=== PATIENT | male | born 1970 | race Caucasian/White ===

== ENCOUNTER 2017-12-16 18:35 | Emergency (ER) | payer SELFPAY ==
--- NOTE | 2017-12-16 19:18 | ER ---
Nurse's Notes [facility] Name: Won Vera Age: 47 yrs Sex: Male : 1970 Arrival Date: 12/16/2017 Time: 18:36 Bed 30 Private MD: Diagnosis: Unspecified open wound, right lower leg-chronic wound Presentation: 12/16 18:48 Presenting complaint: Patient states: Chronic wound to right lower leg. Pt reports hb increased pain and foul smelling drainage over last 3 days. Transition of care: patient was not received from another setting of care. Onset of symptoms is unknown. Risk Assessment: Do you want to hurt yourself or someone else? Patient reports no desire to harm self or others. Initial Sepsis Screen: Does the patient meet any 2 criteria? No. Patient's initial sepsis screen is negative. Does the patient have a suspected source of infection? No. Patient's initial sepsis screen is negative. Care prior to arrival: None. 18:48 Method Of Arrival: Ambulatory hb 18:48 Acuity: DELANEY 3 hb Historical: - Allergies: 18:50 No Known Allergies; hb - PMHx: 18:50 RLS; Anemia; hb - PSHx: 18:50 None; hb - Immunization history:: Adult Immunizations up to date. - Social history:: Smoking status: Patient uses tobacco products, smokes one pack cigarettes per day. - Ebola Screening: : No symptoms or risks identified at this time. Screenin:29 Abuse screen: Denies threats or abuse. Denies injuries from another. Nutritional rv screening: No deficits noted. Tuberculosis screening: No symptoms or risk factors identified. Fall Risk None identified. Assessment: 19:28 General: Appears in no apparent distress. comfortable, Behavior is calm, cooperative. rv Pain: Complains of pain in right foreman. Neuro: Level of Consciousness is awake, alert, obeys commands, Oriented to person, place, time, situation. Cardiovascular: Heart tones S1 S2 present. Respiratory: Airway is patent. GI: No signs and/or symptoms were reported involving the gastrointestinal system. : No signs and/or symptoms were reported regarding the genitourinary system. EENT: No signs and/or symptoms were reported regarding the EENT system. Derm: Wound noted right foreman. Vital Signs: 18:49 BP 153 / 98; Pulse 71; Resp 18; Temp 98.7; Pulse Ox 100% on R/A; Weight 81.65 kg; hb Height 6 ft. (182.88 cm); Pain 9/10; 18:49 Body Mass Index 24.41 (81.65 kg, 182.88 cm) hb ED Course: 18:36 Patient arrived in ED. as 18:49 Triage completed. hb 18:50 Arm band placed on right wrist. hb 19:02 [facility] pm1 19:02 Titi Hua MD is Attending Physician. pm1 19:16 Fam Booker MD is Referral Physician. pm1 19:29 Patient has correct armband on for positive identification. Bed in low position. Call rv light in reach. Side rails up X 1. Adult w/ patient. Pulse ox on. NIBP on. 19:29 No provider procedures requiring assistance completed. Patient did not have IV access rv during this emergency room visit. Administered Medications: No medications were administered Outcome: 19:17 Discharge ordered by MD. pm1 19:29 Discharged to home ambulatory. rv 19:29 Condition: good 19:29 Discharge instructions given to patient, Instructed on discharge instructions, follow up and referral plans. wound care. 19:33 Patient left the ED. rv Signatures: Latosha Booker as Bayron Carvajal NP SQL SSRS DEVELOPER pm1 Estrellita Trinidad, NGA RN Ever Seay RN RN rv
--- NOTE | 2017-12-16 19:18 | EDPHYS ---
Physician Documentation [facility] Name: Won Vera Age: 47 yrs Sex: Male : 1970 Arrival Date: 12/16/2017 Time: 18:36 Bed 30 Private MD: ED Physician Titi Hua HPI: 12/16 19:16 This 47 yrs old Male presents to ER via Ambulatory with complaints of Wound pm1 Infection. 19:16 Patient presents to ED for recheck of: Chronic wound. The affected area is on the pm1 medial aspect of right calf. Previous treatment: 2 years ago at the wound center. Progress: The patient reports no change in. The patient has experienced similar episodes in the past, chronically. The patient has not recently seen a physician. Patient with chronic wound to left lower leg for 5 years. Patient has not had evaluation of his wound for the past 2 years. Patient without fever. Reports some drainage and odor from the wound. Historical: - Allergies: 18:50 No Known Allergies; hb - PMHx: 18:50 RLS; Anemia; hb - PSHx: 18:50 None; hb - Immunization history:: Adult Immunizations up to date. - Social history:: Smoking status: Patient uses tobacco products, smokes one pack cigarettes per day. - Ebola Screening: : No symptoms or risks identified at this time. ROS: 19:16 Constitutional: Negative for fever, chills, and weight loss, Eyes: Negative for injury, pm1 pain, redness, and discharge, ENT: Negative for injury, pain, and discharge, Neck: Negative for injury, pain, and swelling, Cardiovascular: Negative for chest pain, palpitations, and edema, Respiratory: Negative for shortness of breath, cough, wheezing, and pleuritic chest pain, Abdomen/GI: Negative for abdominal pain, nausea, vomiting, diarrhea, and constipation, Back: Negative for injury and pain, : Negative for injury, bleeding, discharge, and swelling, MS/Extremity: Negative for injury and deformity. 19:16 Skin: Positive for Chronic wound. Exam: 19:16 Constitutional: This is a well developed, well nourished patient who is awake, alert, pm1 and in no acute distress. Head/Face: Normocephalic, atraumatic. Neck: Trachea midline, no thyromegaly or masses palpated, and no cervical lymphadenopathy. Supple, full range of motion without nuchal rigidity, or vertebral point tenderness. No Meningismus. Chest/axilla: Normal chest wall appearance and motion. Nontender with no deformity. No lesions are appreciated. Cardiovascular: Regular rate and rhythm with a normal S1 and S2. No gallops, murmurs, or rubs. Normal PMI, no JVD. No pulse deficits. Respiratory: Lungs have equal breath sounds bilaterally, clear to auscultation and percussion. No rales, rhonchi or wheezes noted. No increased work of breathing, no retractions or nasal flaring. Back: No spinal tenderness. No costovertebral tenderness. Full range of motion. 19:16 Skin: Appearance: normal except for affected area, Wound recheck: 10 cm x 5 cm chronic wound without any discharge present. No odor present. No cellulitis present surrounding chronic wound. Vital Signs: 18:49 BP 153 / 98; Pulse 71; Resp 18; Temp 98.7; Pulse Ox 100% on R/A; Weight 81.65 kg; hb Height 6 ft. (182.88 cm); Pain 9/10; 18:49 Body Mass Index 24.41 (81.65 kg, 182.88 cm) hb MDM: 19:13 Patient medically screened. pm1 19:16 Data reviewed: vital signs. Data interpreted: Pulse oximetry: on room air is 100 %. pm1 Interpretation: normal. Counseling: I had a detailed discussion with the patient and/or guardian regarding: the historical points, exam findings, and any diagnostic results supporting the discharge/admit diagnosis, the need for outpatient follow up, for definitive care, wound care, to return to the emergency department if symptoms worsen or persist or if there are any questions or concerns that arise at home. 19:16 ED course: Recommended follow up with general surgeon and/or wound center for pm1 definitive care and treatment. Administered Medications: No medications were administered Disposition: 12/17 09:40 Co-signature as Attending Physician, Titi Hua MD I agree with the assessment and keaton plan of care. Disposition: 12/16/17 19:17 Discharged to Home. Impression: Unspecified open wound, right lower leg - chronic wound. - Condition is Stable. - Discharge Instructions: Wound Care. - Prescriptions for Tramadol 50 mg Oral Tablet - take 1 tablet by ORAL route every 8 hours as needed; 12 tablet. Bactrim DS 800- 160 mg Oral Tablet - take 1 tablet by ORAL route every 12 hours for 10 days; 20 tablet. Doxycycline Hyclate 100 mg Oral Tablet - take 1 tablet by ORAL route every 12 hours; 20 tablet. - Medication Reconciliation Form, Thank You Letter, Antibiotic Education, Prescription Opioid Use form. - Follow up: Fam Booker MD; When: 2 - 3 days; Reason: Recheck today's complaints, Continuance of care, Re-evaluation by your physician. - Problem is new. - Symptoms have improved. Signatures: Titi Hua MD MD cha Marinas, Patrick, NP BRAKE HOLDER pm1 Estrellita Trinidad, RN RN Ever Seay RN RN rv Corrections: (The following items were deleted from the chart) 12/16 19:26 19:17 12/16/2017 19:17 Discharged to Home. Impression: Chronic wound. Condition is pm1 Stable. Forms are Medication Reconciliation Form, Thank You Letter, Antibiotic Education, Prescription Opioid Use. Follow up: Fam Booker; When: 2 - 3 days; Reason: Recheck today's complaints, Continuance of care, Re-evaluation by your physician. Problem is new. Symptoms have improved. pm1 19:33 19:26 12/16/2017 19:17 Discharged to Home. Impression: Unspecified open wound, right rv lower leg - chronic wound. Condition is Stable. Discharge Instructions: Wound Care. Prescriptions for Tramadol 50 mg Oral Tablet - take 1 tablet by ORAL route every 8 hours as needed; 12 tablet, Bactrim DS 800-160 mg Oral Tablet - take 1 tablet by ORAL route every 12 hours for 10 days; 20 tablet. and Forms are Medication Reconciliation Form, Thank You Letter, Antibiotic Education, Prescription Opioid Use. Follow up: Fam Booker; When: 2 - 3 days; Reason: Recheck today's complaints, Continuance of care, Re-evaluation by your physician. Problem is new. Symptoms have improved. pm1
[2017-12-16] MEDS ORDERED: HYDROCODONE/APAP 7.5/325 MG TAB ONE (19:29)
[2017-12-16 20:20] VITALS: BP 153/98; TEMP 98.7; O2SAT 100
== END 2017-12-16 19:33 | disposition home or self-care (01) ==
LOC: ER 18:35
DX: S81.801A Unspecified open wound, right lower leg, initial encounter (principal); F17.210 Nicotine dependence, cigarettes, uncomplicated; X58.XXXA Exposure to other specified factors, initial encounter; Y93.9 Activity, unspecified; Y92.9 Unspecified place or not applicable; Y99.9 Unspecified external cause status
CPT/HCPCS: 99283

== ENCOUNTER 2018-08-12 17:34 | Emergency (ER) | payer SELFPAY ==
--- NOTE | 2018-08-12 18:28 | RAD REPORT ---
EXAM DESCRIPTION: USExtronaldo Venous Uni Ltd3 6:18 pm CLINICAL HISTORY: Right leg pain and swelling. COMPARISON: 2016 FINDINGS: Right common femoral, superficial femoral, popliteal and right posterior tibial veins are compressible and demonstrate augmentation. Doppler demonstrates good flow. IMPRESSION: No evidence of deep venous thrombosis involving the right lower extremity.
--- NOTE | 2018-08-12 19:11 | EDPHYS ---
Physician Documentation [facility] Name: Won Vera Age: 48 yrs Sex: Male : 1970 Arrival Date: 08/12/2018 Time: 17:37 Bed 11 Private MD: None, None ED Physician Sigrid Burgos HPI: 08/12 18:05 This 48 yrs old Male presents to ER via Ambulatory with complaints of Leg cp Pain. 18:05 The patient presents with pain, chronic wound. cp 18:05 The complaints affect the medial aspect of right calf. cp 18:05 Patient reports chronic ulcer wound on right lower leg for years that he has been cp managing on own. Patient reports he has been unable to be evaluated at wound care clinic due to lack of PCP and insurance. 18:05 Associated signs and symptoms: Pertinent negatives fever, swelling. cp Historical: - Allergies: 17:40 No Known Drug Allergies; sv - PMHx: 17:40 Anemia; RLS; sv - PSHx: 17:40 None; sv - Immunization history:: Adult Immunizations unknown. - Social history:: Smoking status: Patient/guardian denies using tobacco. - Ebola Screening: : Patient negative for fever greater than or equal to 101.5 degrees Fahrenheit, and additional compatible Ebola Virus Disease symptoms Patient denies exposure to infectious person Patient denies travel to an Ebola-affected area in the 21 days before illness onset No symptoms or risks identified at this time. ROS: 18:10 MS/extremity: Positive for pain, of the right lower leg. cp 18:10 Constitutional: Negative for body aches, chills, fever, poor PO intake. cp 18:10 Respiratory: Negative for cough, shortness of breath, wheezing. 18:10 Abdomen/GI: Negative for abdominal pain, nausea, vomiting, and diarrhea. 18:10 Skin: Positive for ulceration, of the medial aspect right lower leg. 18:10 All other systems are negative. Exam: 18:20 Constitutional: The patient appears in no acute distress, alert, awake, non-toxic, well cp developed, well nourished. 18:20 Head/Face: Normocephalic, atraumatic. cp 18:20 Eyes: Periorbital structures: appear normal, Conjunctiva: normal, no exudate, no injection, Lids and lashes: appear normal, bilaterally. 18:20 ENT: External ear(s): are unremarkable, Nose: is normal, Mouth: Lips: moist, Oral mucosa: moist, Posterior pharynx: Airway: no evidence of obstruction, patent. 18:20 Chest/axilla: Inspection: normal. 18:20 Cardiovascular: Rate: normal. 18:20 Respiratory: the patient does not display signs of respiratory distress, Respirations: normal. 18:20 Abdomen/GI: Exam negative for discomfort, distension, guarding. 18:20 Musculoskeletal/extremity: DVT Exam: pain, that is mild, of the right leg, tenderness, that is mild, of the right leg, increased warmth, that is mild, of the right leg. 18:20 Skin: large skin ulcer medial aspect right lower leg above ankle with mild surrounding erythema. Vital Signs: 17:40 BP 138 / 82; Pulse 77; Resp 16; Temp 98; Pulse Ox 100% ; Weight 81.65 kg; Height 6 ft. sv 0 in. (182.88 cm); Pain 7/10; 19:32 BP 136 / 78; Pulse 74; Resp 16; Temp 98.1; Pulse Ox 99% on R/A; Pain 6/10; ls4 17:40 Body Mass Index 24.41 (81.65 kg, 182.88 cm) sv MDM: 17:45 Patient medically screened. cp 18:30 Differential diagnosis: DVT, cellulitis, abscess. cp 19:10 Data reviewed: vital signs, nurses notes, radiologic studies, ultrasound. cp 19:10 Counseling: I had a detailed discussion with the patient and/or guardian regarding: the cp historical points, exam findings, and any diagnostic results supporting the discharge/admit diagnosis, radiology results, the need for outpatient follow up, for definitive care, a general surgeon, to return to the emergency department if symptoms worsen or persist or if there are any questions or concerns that arise at home. 08/12 17:56 Order name: US Extremity Venous Unilateral Ltd; Complete Time: 18:35 cp 08/12 18:35 Interpretation: Report reviewed. cp Administered Medications: No medications were administered Disposition: 20:00 Chart complete. cp 20:41 Co-signature as Attending Physician, Sigrid Burgos MD. ma2 Disposition: 08/12/18 19:11 Discharged to Home. 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 - Condition is Stable. - Discharge Instructions: Cellulitis, Adult, Venous Ulcer. - Prescriptions for Tramadol 50 mg Oral Tablet - take 1 tablet by ORAL route every 8 hours as needed; 15 tablet. Keflex 500 mg Oral Capsule - take 1 capsule by ORAL route every 8 hours for 10 days; 30 capsule. Bactrim DS 800- 160 mg Oral Tablet - take 1 tablet by ORAL route every 12 hours for 10 days; 20 tablet. - Medication Reconciliation Form, Thank You Letter, Antibiotic Education, Prescription Opioid Use, Work release form form. - Follow up: Johnathan Barrera MD; When: 48 Hours; Reason: Wound Recheck. - Problem is an ongoing problem. - Symptoms have improved. Signatures: Dispatcher [employer] Radha Ahmadi RN RN sv Titi Villarreal PA PA cp Sigrid Burgos MD MD ma2 Angelita Wilson RN RN ls4 Corrections: (The following items were deleted from the chart) 19:07 18:05 The complaints affect the medial aspect distal left lower leg, cp cp 19:12 19:11 08/12/2018 19:11 Discharged to Home. Impression: Varicose veins of right lower cp extremity with both ulcer and inflammation. Condition is Stable. Forms are Medication Reconciliation Form, Thank You Letter, Antibiotic Education, Prescription Opioid Use. Follow up: Johnathan Barrera; When: 48 Hours; Reason: Wound Recheck. Problem is an ongoing problem. Symptoms have improved. cp 19:33 19:12 08/12/2018 19:11 Discharged to Home. Impression: Varicose veins of right lower ls4 extremity with both ulcer and inflammation; Cellulitis of right lower limb. Condition is Stable. Discharge Instructions: Venous Ulcer, Cellulitis, Adult. Prescriptions for Tramadol 50 mg Oral Tablet - take 1 tablet by ORAL route every 8 hours as needed; 15 tablet, Keflex 500 mg Oral Capsule - take 1 capsule by ORAL route every 8 hours for 10 days; 30 capsule, Bactrim DS 800-160 mg Oral Tablet - take 1 tablet by ORAL route every 12 hours for 10 days; 20 tablet. and Forms are Medication Reconciliation Form, Thank You Letter, Antibiotic Education, Prescription Opioid Use. Follow up: Johnathan Barrera; When: 48 Hours; Reason: Wound Recheck. Problem is an ongoing problem. Symptoms have improved. cp
--- NOTE | 2018-08-12 19:11 | ER ---
Nurse's Notes [facility] Name: Won Vera Age: 48 yrs Sex: Male : 1970 Arrival Date: 08/12/2018 Time: 17:37 Bed 11 Private MD: None, None Diagnosis: Varicose veins of right lower extremity with both ulcer and inflammation;Cellulitis of right lower limb Presentation: 08/12 17:39 Presenting complaint: Patient states: RLE pain, "I have a visceral vein and it keeps sv getting worse." Has had it for 6 years. Transition of care: patient was not received from another setting of care. Onset of symptoms is unknown. Care prior to arrival: None. 17:39 Method Of Arrival: Ambulatory sv 17:39 Acuity: DELANEY 4 sv 17:43 Risk Assessment: Do you want to hurt yourself or someone else? Patient reports no ls4 desire to harm self or others. Initial Sepsis Screen: Does the patient meet any 2 criteria? No. Patient's initial sepsis screen is negative. Does the patient have a suspected source of infection? No. Patient's initial sepsis screen is negative. Triage Assessment: 17:51 General: Appears in no apparent distress. Behavior is cooperative. ls4 Historical: - Allergies: 17:40 No Known Drug Allergies; sv - PMHx: 17:40 Anemia; RLS; sv - PSHx: 17:40 None; sv - Immunization history:: Adult Immunizations unknown. - Social history:: Smoking status: Patient/guardian denies using tobacco. - Ebola Screening: : Patient negative for fever greater than or equal to 101.5 degrees Fahrenheit, and additional compatible Ebola Virus Disease symptoms Patient denies exposure to infectious person Patient denies travel to an Ebola-affected area in the 21 days before illness onset No symptoms or risks identified at this time. Screenin:42 Abuse screen: Denies threats or abuse. Denies injuries from another. Nutritional ls4 screening: No deficits noted. Tuberculosis screening: No symptoms or risk factors identified. Fall Risk None identified. Assessment: 16:00 Pain: Complains of pain in medial aspect of right calf Pain currently is 6 out of 10 on ls4 a pain scale. Cardiovascular: No deficits noted. Respiratory: No deficits noted. GI: No deficits noted. 16:00 Derm: Wound noted medial aspect of right calf Wound is clean open venous wound. pink. ls4 Vital Signs: 17:40 BP 138 / 82; Pulse 77; Resp 16; Temp 98; Pulse Ox 100% ; Weight 81.65 kg; Height 6 ft. sv 0 in. (182.88 cm); Pain 7/10; 19:32 BP 136 / 78; Pulse 74; Resp 16; Temp 98.1; Pulse Ox 99% on R/A; Pain 6/10; ls4 17:40 Body Mass Index 24.41 (81.65 kg, 182.88 cm) sv ED Course: 17:37 Patient arrived in ED. mr 17:37 None, None is Private Physician. mr 17:39 Triage completed. sv 17:41 Angelita Wilson, RN is Primary Nurse. ls4 17:41 Arm band placed on. sv 17:42 Patient has correct armband on for positive identification. ls4 17:42 No provider procedures requiring assistance completed. ls4 17:45 Titi Villarreal PA is PHCP. cp 17:45 Sigrid Burgos MD is Attending Physician. cp 18:17 Ultrasound completed. Patient tolerated well. Patient moved back from ultrasound. cy 18:17 US Extremity Venous Unilateral Ltd In Process Unspecified. EDMS 19:09 Johnathan Barrera MD is Referral Physician. cp 19:31 Patient did not have IV access during this emergency room visit. ls4 Administered Medications: No medications were administered Outcome: 19:11 Discharge ordered by MD. cp 19:30 Discharged to home ambulatory. ls4 19:30 Condition: good 19:30 Discharge instructions given to patient, Instructed on discharge instructions, follow up and referral plans. medication usage, wound care, Demonstrated understanding of instructions, follow-up care, medications, wound care, Prescriptions given X 3. 19:33 Patient left the ED. ls4 Signatures: Dispatcher [employer] EDRadha Escalona RN RN Indira Piña mr Titi Villarreal PA PA cp Yong, Chheannith cy Stewart, Lisa, NGA RN ls4
[2018-08-12 19:42] VITALS: BP 136/78; TEMP 98.1; O2SAT 99
== END 2018-08-12 19:33 | disposition home or self-care (01) ==
LOC: ER 17:34
DX: L03.115 Cellulitis of right lower limb (principal); I83.218 Varicose veins of right lower extremity with both ulcer of other part of lower extremity and inflammation; L97.819 Non-pressure chronic ulcer of other part of right lower leg with unspecified severity
CPT/HCPCS: 93971; 99284

== ENCOUNTER 2018-12-22 19:50 | Inpatient (IN) | payer SELFPAY ==
[2018-12-22 21:19] LABS: Absolute Lymphocytes (CBC) 1.1 K/uL (0.7-4.9); Basophils % 0.6 % (0-1.3); Lymphocytes % 9.2 % (15.3-44.8); MPV 8.7 fL (7.6-11.3); RBC Red Blood Cell Count 2.79 M/uL (4.33-5.43)
[2018-12-22 21:33] LABS: Hematocrit 16.6 % (39.6-49.0); Protime INR 1.05
[2018-12-22] MEDS ORDERED: FENTANYL CITR 100 MCG/2 ML ONE (21:49)
[2018-12-22 21:51] LABS: Urine Bacteria <20 /HPF (NONE SEEN); Urine Culture Reflex Order NOT NEEDED
--- NOTE | 2018-12-22 21:55 | RAD REPORT ---
EXAM DESCRIPTION: RAD - Tib Fib Right - 12/22/2018 9:08 pm CLINICAL HISTORY: chronic wound COMPARISON: Tibia Fibula Right dated 01/23/2015 FINDINGS: Prominent wound is seen along the medial aspect of the distal leg. Underlying osteomyeliti s is not evident by plain radiograph. No radiopaque foreign body seen. Moderate soft tissue swelling about the ankle.
--- NOTE | 2018-12-22 22:12 | RAD REPORT ---
EXAM DESCRIPTION: US - Extremity Venous Uni Ltd - 12/22/2018 10:05 pm CLINICAL HISTORY: PAIN Leg swelling and edema. COMPARISON: <Comparisons> FINDINGS: Right lower extremity venous system was interrogated with Doppler technique. Normal flow, compressibility and augmentation was noted. There is no DVT present. IMPRESSION: No evidence of right lower extremity deep venous thrombosis.
[2018-12-22 22:25] LABS: ALT/SGPT 14 U/L (12-78); AST/SGOT 14 U/L (15-37); Albumin 3.5 g/dL (3.4-5.0); Alkaline Phosphatase 64 U/L (45-117); BUN Blood Urea Nitrogen 21 mg/dL (7-18); Bicarbonate 20 mmol/L (21-32); Bilirubin Direct < 0.1 mg/dL (0-0.2); Bilirubin Total 0.2 mg/dL (0.2-1.0); Glucose Level 88 mg/dL (74-106); Potassium 3.8 mmol/L (3.5-5.1); Protein, Total 7.1 g/dL (6.4-8.2); Sodium Level 144 mmol/L (136-145)
[2018-12-22 22:33] LABS: Anisocytosis 3+; Blood Morphology Comment NOTED (NOT SEEN); Hypochromasia 3+; Ovalocytes 3+; Platelet Estimate ADEQ; Teardrop Cell 1+; Urine White Blood Cell Casts OK
[2018-12-22 22:35] LABS: C-Reactive Protein 6.11 mg/L (<3.00)
[2018-12-22 22:44] LABS: Urine Blood 1+ (NEG); Urine Glucose NEGATIVE (NEG); Urine Protein TRACE (NEG)
--- NOTE | 2018-12-22 23:02 | EDPHYS ---
Physician Documentation [facility] Name: Won Vera Age: 48 yrs Sex: Male : 1970 Arrival Date: 12/22/2018 Time: 19:53 Bed 23 Private MD: ED Physician Antony Pabon HPI: 12/22 20:35 This 48 yrs old Male presents to ER via Ambulatory with complaints of Leg cp Pain, Wound Infection. 20:35 The patient presents with chronic wound. The complaints affect the medial aspect of cp right calf. Context: resulted from spider bite 6 years ago, the patient can fully bear weight, the patient is able to ambulate, with mild difficulty. 20:35 Associated signs and symptoms: Pertinent positives: warmth, drainage from wound, cp Pertinent negatives fever, vomiting. Historical: - Allergies: 21:19 No Known Allergies; rr5 - Home Meds: 21:19 None [Active]; rr5 - PMHx: 21:19 Anemia; RLS; Asthma; rr5 - PSHx: 21:19 wound debridement; rr5 - Immunization history:: Adult Immunizations up to date. - Social history:: Smoking status: Patient uses tobacco products, 1/4 ppD, Patient/guardian denies using alcohol, street drugs. - Ebola Screening: : Patient negative for fever greater than or equal to 101.5 degrees Fahrenheit, and additional compatible Ebola Virus Disease symptoms Patient denies exposure to infectious person Patient denies travel to an Ebola-affected area in the 21 days before illness onset. ROS: 20:45 Constitutional: Negative for body aches, chills, fever, poor PO intake. cp 20:45 Eyes: Negative for injury, pain, redness, and discharge. cp 20:45 ENT: Negative for drainage from ear(s), ear pain, sore throat, difficulty swallowing, cp difficulty handling secretions. 20:45 Cardiovascular: Negative for chest pain, palpitations. 20:45 Respiratory: Positive for shortness of breath, on exertion. Negative for cough, wheezing. 20:45 Abdomen/GI: Negative for abdominal pain, nausea, vomiting, and diarrhea, constipation, anorexia, black/tarry stool, rectal bleeding. 20:45 : Negative for urinary symptoms. 20:45 Skin: Positive for swelling, of the medial aspect of right calf. 20:45 Neuro: Positive for dizziness, weakness, Negative for altered mental status, headache, loss of consciousness, syncope. 20:45 All other systems are negative. Exam: 20:55 Constitutional: The patient appears in no acute distress, alert, awake, cp non-diaphoretic, non-toxic, well developed, well nourished, uncomfortable. 20:55 Head/Face: Normocephalic, atraumatic. cp 20:55 Eyes: Pupils equal round and reactive to light, extra-ocular motions intact. Lids and cp lashes normal. Conjunctiva and sclera are non-icteric and not injected. Cornea within normal limits. Periorbital areas with no swelling, redness, or edema. 20:55 ENT: External ear(s): are unremarkable, Nose: is normal, Mouth: Lips: moist, Oral mucosa: pink and intact, moist, Posterior pharynx: is normal, airway is patent, no erythema, no exudate. 20:55 Neck: ROM/movement: is normal, is supple, without pain, no range of motions limitations, no nuchal rigidity. 20:55 Chest/axilla: Inspection: normal, Palpation: is normal, no crepitus, no tenderness. 20:55 Cardiovascular: Rate: normal, Rhythm: regular, Heart sounds: murmur, not appreciated, JVD: is not appreciated. 20:55 Respiratory: the patient does not display signs of respiratory distress, Respirations: normal, no use of accessory muscles, no retractions, no splinting, no tachypnea, labored breathing, is not present, Breath sounds: are clear throughout, no decreased breath sounds, no stridor, no wheezing. 20:55 Abdomen/GI: Inspection: abdomen appears normal, Palpation: abdomen is soft and cp non-tender, in all quadrants, Rectal exam: Stool: brown, guaiac negative. 20:55 Back: pain, is absent, ROM is normal. 20:55 Skin: large ulcerated wound medial aspect right lower leg with surrounding erythema and drainage. 20:55 Neuro: Orientation: to person, place \T\ time. Mentation: is normal, Cerebellar function: is grossly normal, Motor: moves all fours, strength is normal, Sensation: no obvious gross deficits. 12/23 01:09 ECG was reviewed by the Attending Physician. cp Vital Signs: 12/22 20:50 BP 146 / 63; Pulse 80; Resp 19; Temp 98.3; Pulse Ox 99% ; Weight 79.38 kg; Height 6 ft. rr5 0 in. (182.88 cm); Pain 9/10; 23:55 BP 123 / 70; Pulse 65; Resp 16; Temp 97.8; Pulse Ox 100% ; rr5 12/23 00:05 BP 116 / 67; Pulse 66; Resp 17; Temp 97.8; Pulse Ox 99% ; rr5 12/22 20:50 Body Mass Index 23.73 (79.38 kg, 182.88 cm) rr5 12/22 23:55 baseline VS for Blood transfusion. rr5 12/23 00:05 please see trasnfusion record form for the succeeding VS rr5 MDM: 12/22 20:01 Patient medically screened. cp 21:00 Differential diagnosis: sepsis, osteomyelitis, cellulitis, DVT. cp 22:45 Data reviewed: vital signs, nurses notes, lab test result(s), radiologic studies, plain cp films, ultrasound, and as a result, I will admit patient. 22:45 Test interpretation: by ED physician or midlevel provider: plain radiologic studies. cp Counseling: I had a detailed discussion with the patient and/or guardian regarding: the historical points, exam findings, and any diagnostic results supporting the discharge/admit diagnosis, lab results, radiology results, the need for further work-up and treatment in the hospital. 23:00 Physician consultation: Sigrid Carcamo MD was called at 22:50, was contacted at 22:50, cp regarding admission, to the telemetry unit. patient's condition. 23:00 Response to treatment: the patient's symptoms have markedly improved after treatment. 12/22 20:30 Order name: Wound Culture: right lower leg 12/22 20:30 Order name: C-Reactive Protein; Complete Time: 22:37 12/22 22:38 Interpretation: Abnormal: C-REACTIVE PROT 6.11. 12/22 20:30 Order name: Sed Rate; Complete Time: 22:37 cp 12/22 22:38 Interpretation: Abnormal: SED 58. cp 12/22 20:30 Order name: Basic Metabolic Panel; Complete Time: 22:37 12/22 20:30 Order name: Blood Culture Adult (2) cp 12/22 20:30 Order name: CBC with Diff; Complete Time: 22:37 cp 12/22 22:38 Interpretation: Reviewed. 12/22 20:30 Order name: Lactate; Complete Time: 22:23 cp 12/22 20:30 Order name: LFT's; Complete Time: 22:37 cp 12/22 20:30 Order name: Procalcitonin; Complete Time: 22:23 cp 12/22 20:30 Order name: Protime (+inr); Complete Time: 21:36 cp 12/22 20:30 Order name: Ptt, Activated; Complete Time: 21:36 cp 12/22 20:30 Order name: Urine Microscopic Only; Complete Time: 22:23 cp 12/22 21:19 Order name: Glucose, Ancillary Testing; Complete Time: 21:36 EDMS 12/22 21:35 Order name: Urine Dipstick--Ancillary (enter results) 2 12/22 20:30 Order name: XRAY Tib Fib RIGHT; Complete Time: 22:23 cp 12/22 21:31 Order name: US Extremity Venous Unilateral Ltd; Complete Time: 22:23 cp 12/22 21:37 Order name: CBC Smear Scan; Complete Time: 22:37 EDMS 12/22 21:37 Order name: Type And Screen 12/22 23:16 Order name: Packed RBC Leukored EDMS 12/23 00:44 Order name: Folic Acid, (Folate) EDMS 12/23 00:44 Order name: Vitamin B12 Level EDMS 12/23 00:44 Order name: Ferritin EDMS 12/23 00:44 Order name: Lactic Dehydrogenase EDMS 12/23 00:44 Order name: Retic Count EDMS 12/23 00:45 Order name: Protein Electo w/M Anish Serum EDMS 12/23 00:45 Order name: Transferrin Sat/Iron Binding EDMS 12/23 00:45 Order name: Basic Metabolic Panel EDMS 12/23 00:45 Order name: Basic Metabolic Panel EDMS 12/23 00:45 Order name: CBC with Automated Diff EDMS 12/23 00:45 Order name: CBC with Automated Diff EDMS 12/22 20:30 Order name: Accucheck; Complete Time: 21:12 cp 12/22 20:30 Order name: Cardiac monitoring; Complete Time: 21:12 cp 12/22 20:30 Order name: IV Saline Lock - Large Bore; Complete Time: 21:12 cp 12/22 20:30 Order name: Labs collected and sent; Complete Time: 21:12 cp 12/22 20:30 Order name: O2 Per Protocol; Complete Time: 21:12 cp 12/22 20:30 Order name: O2 Sat Monitoring; Complete Time: 21:12 cp 12/22 20:30 Order name: Urine Dipstick-Ancillary (obtain specimen); Complete Time: 21:30 12/22 21:37 Order name: IV; Complete Time: 21:39 cp 12/22 22:43 Order name: US LE Artery Uni Ltd 12/23 00:44 Order name: CONS Pharmacy Consult EDSC 12/23 00:44 Order name: CONS Pharmacy Consult EDSC 12/23 00:44 Order name: Heart Healthy EDSC 12/23 01:02 Order name: EKG; Complete Time: 01:05 cp 12/23 01:02 Order name: EKG - Nurse/Tech; Complete Time: 01:14 cp EC/30 01:09 Rate is 68 beats/min. Rhythm is regular. OR interval is normal. QRS interval is normal. cp QT interval is normal. Interpreted by me. Reviewed by me. Administered Medications: 12/22 21:37 Drug: fentaNYL (PF) 25 mcg Route: IVP; Site: right antecubital; rr5 22:40 Follow up: Response: No adverse reaction rr5 23:35 Drug: Zosyn 3.375 grams Route: IVPB; Infused Over: 60 mins; Site: right antecubital; ea 12/23 00:30 Follow up: Response: No adverse reaction; IV Status: Completed infusion; IV Intake: rr5 100ml 12/22 23:35 Drug: morphine 4 mg Route: IVP; Site: right antecubital; ea 12/23 00:41 Follow up: Response: No adverse reaction rr5 00:31 Drug: vancoMYCIN 1 grams Route: IVPB; Infused Over: 2 hrs; Site: right antecubital; rr5 01:49 Follow up: Response: No adverse reaction; IV Status: Completed infusion; IV Intake: rr5 250ml 00:31 Drug: vancoMYCIN 500 mg Route: IVPB; Infused Over: 1 hrs; Site: right antecubital; rr5 01:05 Follow up: IV Status: Infusion continued upon admission rr5 Point of Care Testing: Blood Glucose: 12/22 21:18 Blood Glucose: 92 mg/dL; jp3 Ranges: Critical Glucose Levels:Adult <50 mg/dl or >400 mg/dl <40 mg/dl or >180 mg/dl Disposition: 12/23 04:08 Co-signature as Attending Physician, Antony Pabon MD I agree with the assessment and tw4 plan of care. Disposition: 12/22/18 23:01 Hospitalization ordered by Sigrid Carcamo for Inpatient Admission. Preliminary diagnosis are Anemia in chronic diseases classified elsewhere, Cellulitis of right lower limb. - Bed requested for Telemetry/MedSurg (Inpatient). - Status is Inpatient Admission. rr5 - Condition is Stable. - Problem is new. - Symptoms have improved. UTI on Admission? No Signatures: Dispatcher [employer] EDMS Titi Villarreal PA PA cp Garcia, Cindy, RN RN Bushra Patel RN Antony Rosa ea, MD MD tw4 Jeovanny Garcia RN RN rr5 Corrections: (The following items were deleted from the chart) 00:47 12/22 23:01 Hospitalization Ordered by Sigrid Carcamo MD for Inpatient Admission. cg Preliminary diagnosis is Anemia in chronic diseases classified elsewhere; Cellulitis of right lower limb. Bed requested for Telemetry/MedSurg (Inpatient). Status is Inpatient Admission. Condition is Stable. Problem is new. Symptoms have improved. UTI on Admission? No. cp 12/23 00:59 00:59 Constitutional: Negative for cp cp 01:50 00:47 12/22/2018 23:01 Hospitalization Ordered by Sigrid Carcamo MD for Inpatient rr5 Admission. Preliminary diagnosis is Anemia in chronic diseases classified elsewhere; Cellulitis of right lower limb. Bed requested for Telemetry/MedSurg (Inpatient). Status is Inpatient Admission. Condition is Stable. Problem is new. Symptoms have improved. UTI on Admission? No. cg
--- NOTE | 2018-12-22 23:02 | ER ---
Nurse's Notes [facility] Name: Won Vera Age: 48 yrs Sex: Male : 1970 Arrival Date: 12/22/2018 Time: 19:53 Bed 23 Private MD: Diagnosis: Anemia in chronic diseases classified elsewhere;Cellulitis of right lower limb Presentation: 12/22 20:50 Presenting complaint: Patient states: pain on my right leg. it was bitten by spider 6 rr5 years ago and it turned out became visceral ulcer. pain score 9/10. 20:50 Transition of care: patient was not received from another setting of care. Onset of rr5 symptoms was December 22, 2018. Risk Assessment: Do you want to hurt yourself or someone else? Patient reports no desire to harm self or others. Initial Sepsis Screen: Does the patient meet any 2 criteria? No. Patient's initial sepsis screen is negative. Does the patient have a suspected source of infection? Yes: Skin breakdown/wound. Care prior to arrival: None. 20:50 Method Of Arrival: Ambulatory rr5 20:50 Acuity: DELANEY 3 rr5 Historical: - Allergies: 21:19 No Known Allergies; rr5 - Home Meds: 21:19 None [Active]; rr5 - PMHx: 21:19 Anemia; RLS; Asthma; rr5 - PSHx: 21:19 wound debridement; rr5 - Immunization history:: Adult Immunizations up to date. - Social history:: Smoking status: Patient uses tobacco products, 1/4 ppD, Patient/guardian denies using alcohol, street drugs. - Ebola Screening: : Patient negative for fever greater than or equal to 101.5 degrees Fahrenheit, and additional compatible Ebola Virus Disease symptoms Patient denies exposure to infectious person Patient denies travel to an Ebola-affected area in the 21 days before illness onset. Screenin:11 Abuse screen: Denies threats or abuse. Denies injuries from another. Nutritional rr5 screening: No deficits noted. Tuberculosis screening: No symptoms or risk factors identified. Fall Risk IV access (20 points). Total Cui Fall Scale indicates No Risk (0-24 pts). Assessment: 20:50 General: Appears in no apparent distress. uncomfortable, Behavior is calm, cooperative, rr5 appropriate for age. 20:50 Pain: Complains of pain in right lower leg Pain does not radiate. Pain currently is 9 rr5 out of 10 on a pain scale. Quality of pain is described as aching, Pain began gradually, Is intermittent. Neuro: Level of Consciousness is awake, alert, obeys commands, Oriented to person, place, time, situation. Cardiovascular: Capillary refill < 3 seconds Patient's skin is warm and dry. Respiratory: Airway is patent Respiratory effort is even, unlabored, Respiratory pattern is regular, symmetrical. GI: No signs and/or symptoms were reported involving the gastrointestinal system. : No signs and/or symptoms were reported regarding the genitourinary system. EENT: No signs and/or symptoms were reported regarding the EENT system. Derm: Skin is pale, Wound noted right lower leg Wound is cellulitis infected wound. Musculoskeletal: Circulation, motion, and sensation intact. Capillary refill < 3 seconds. 21:30 Reassessment: aaron [phone] joshua ( ) [phone]. rr5 22:00 Reassessment: Patient appears in no apparent distress at this time. Patient is alert, rr5 oriented x 3, equal unlabored respirations, skin warm/dry/pink. awaiting for results. 23:00 Reassessment: Patient appears in no apparent distress at this time. Patient is alert, rr5 oriented x 3, equal unlabored respirations, skin warm/dry/pink. ultrasound of left extremity at bedside. 23:35 Reassessment: complaints of pain at the right lower leg. pain score of 9/10 ED provider rr5 aware with order made and carried out. 12/23 00:05 Reassessment: Patient appears in no apparent distress at this time. Patient is alert, rr5 oriented x 3, equal unlabored respirations, skin warm/dry/pink. 1st unit of PRBC started unit # [id number] wrist band [id number] type A positive expires 01/15/2359. consent form signed. 00:35 Reassessment: Patient appears in no apparent distress at this time. Patient is alert, rr5 oriented x 3, equal unlabored respirations, skin warm/dry/pink. Patient states feeling better. Patient states symptoms have improved. 00:40 Reassessment: Patient appears in no apparent distress at this time. eyes closed rr5 breathing spontaneously at room air. ongoing Blood transfusion. no signs of , itchiness. 01:35 Reassessment: pharmacy called randi Charge nurse, with order per protocol for the rr5 vancomycin to infuse 1500mg/ IV instead of 1000mg. Vital Signs: 12/22 20:50 BP 146 / 63; Pulse 80; Resp 19; Temp 98.3; Pulse Ox 99% ; Weight 79.38 kg; Height 6 ft. rr5 0 in. (182.88 cm); Pain 9/10; 23:55 BP 123 / 70; Pulse 65; Resp 16; Temp 97.8; Pulse Ox 100% ; rr5 12/23 00:05 BP 116 / 67; Pulse 66; Resp 17; Temp 97.8; Pulse Ox 99% ; rr5 12/22 20:50 Body Mass Index 23.73 (79.38 kg, 182.88 cm) rr5 12/22 23:55 baseline VS for Blood transfusion. rr5 12/23 00:05 please see trasnfusion record form for the succeeding VS rr5 ED Course: 12/22 19:53 Patient arrived in ED. do 19:57 Titi Villarreal PA is PHCP. cp 19:57 Antony Pabon MD is Attending Physician. cp 20:03 Jeovanny Garcia, NGA is Primary Nurse. rr5 20:50 Arm band placed on left wrist. rr5 20:54 Jeovanny Garcia, NGA is Primary Nurse. rr5 20:55 Patient maintains SpO2 saturation greater than 95% on room air. jp3 20:55 Initial lab(s) drawn, by ct, sent to lab. First set of blood cultures drawn by , jpFior Wound culture swab sent to lab. Inserted saline lock: 18 gauge in right antecubital area, using aseptic technique. Blood collected. 21:00 Bed in low position. Call light in reach. Side rails up X 1. Ice pack to injury. Verbal jp3 reassurance given. equipment monitor phototypesetting on. Pulse ox on. NIBP on. 21:12 XRAY Tib Fib RIGHT In Process Unspecified. EDMS 21:12 Wound Culture: right lower leg Sent. jp3 21:12 C-Reactive Protein Sent. jp3 21:12 Sed Rate Sent. jp3 21:12 Basic Metabolic Panel Sent. jp3 21:12 Blood Culture Adult (2) Sent. jp3 21:12 CBC with Diff Sent. jp3 21:12 Lactate Sent. jp3 21:12 LFT's Sent. jp3 21:12 Procalcitonin Sent. jp3 21:12 Protime (+inr) Sent. jp3 21:12 Urine Microscopic Only Sent. jp3 21:12 Ptt, Activated Sent. jp3 21:18 Triage completed. rr5 21:20 Urine collected: clean catch specimen, clear, leonardo colored. jp3 21:23 Second set of blood cultures drawn by me. jp3 21:50 Inserted saline lock: 18 gauge in left antecubital area, using aseptic technique. jp3 22:05 T\T\S collected, blood band applied to patient. jp3 22:07 US Extremity Venous Unilateral Ltd In Process Unspecified. EDMS 22:08 Type And Screen Sent. jp3 22:59 Sigrid Carcamo MD is Hospitalizing Provider. cp 23:19 US LE Artery Uni Ltd In Process Unspecified. EDMS 23:40 Wound care: to cellulitis located on right lower leg was cleaned with Hibiclens, rr5 irrigated with normal saline, dressed with wet to dry. 12/23 01:10 EKG done, by ED staff, reviewed by Titi BERG. rr5 01:25 No provider procedures requiring assistance completed. Patient admitted, IV remains in rr5 place. intact, No redness/swelling at site. Administered Medications: 12/22 21:37 Drug: fentaNYL (PF) 25 mcg Route: IVP; Site: right antecubital; rr5 22:40 Follow up: Response: No adverse reaction rr5 23:35 Drug: Zosyn 3.375 grams Route: IVPB; Infused Over: 60 mins; Site: right antecubital; ea 12/23 00:30 Follow up: Response: No adverse reaction; IV Status: Completed infusion; IV Intake: rr5 100ml 12/22 23:35 Drug: morphine 4 mg Route: IVP; Site: right antecubital; ea 12/23 00:41 Follow up: Response: No adverse reaction rr5 00:31 Drug: vancoMYCIN 1 grams Route: IVPB; Infused Over: 2 hrs; Site: right antecubital; rr5 01:49 Follow up: Response: No adverse reaction; IV Status: Completed infusion; IV Intake: rr5 250ml 00:31 Drug: vancoMYCIN 500 mg Route: IVPB; Infused Over: 1 hrs; Site: right antecubital; rr5 01:05 Follow up: IV Status: Infusion continued upon admission rr5 Point of Care Testing: Blood Glucose: 12/22 21:18 Blood Glucose: 92 mg/dL; jp3 Ranges: Intake: 12/23 00:30 IV: 100ml; Total: 100ml. rr5 01:49 IV: 250ml; Total: 350ml. rr5 Outcome: 12/22 23:01 Decision to Hospitalize by Provider. oli 12/23 01:25 Admitted to Med/surg accompanied by nurse, via stretcher, room 215, with chart, Report rr5 called to [facility] Condition: stable Instructed on the need for admit. 01:50 Patient left the ED. rr5 Signatures: Dispatcher [employer] EDMS Titi Villarreal PA PA cp Ogletree, Danielle do Antunez, Elena RN Satnam Mack ea jp3 Jeovanny Garcia RN RN rr5
[2018-12-22] MEDS ORDERED: NA CHLORIDE 0.9% 250 ML ONE (23:28)
[2018-12-22] MEDS ORDERED: VANCOMYCIN 1 GM/VIAL ONE (23:28)
[2018-12-22] MEDS ORDERED: PIPER/TAZO/NS 3.375gm 3.375 GM/100 ML BAG ONE (23:29)
[2018-12-22] MEDS ORDERED: MORPHINE 4 MG/ML SYR ONE (23:40)
[2018-12-23] MEDS ORDERED: ONDANSETRON 4 MG/2 ML VIAL IV PRN (00:08)
[2018-12-23] MEDS ORDERED: ACETAMINOPHEN 500 MG TAB PO PRN (00:08)
[2018-12-23] MEDS ORDERED: VANCOMYCIN 1 GM/VIAL ONE (01:56)
[2018-12-23] MEDS ORDERED: VANCOMYCIN 1 GM, VANCOMYCIN 500 MG in NA CHLORIDE 0.9% 500 ML IV SCH (02:00)
[2018-12-23] MEDS ORDERED: NA CHLORIDE 0.9% 100 ML IV ONE (02:02)
[2018-12-23] MEDS: NA CHLORIDE 0.9% 1,000 ML IV SCH ×3 (02:31→23:30)
[2018-12-23] MEDS: Levofloxacin500mg IV 500 MG/100 ML BAG IV SCH (02:35)
[2018-12-23] MEDS: MORPHINE 2 MG/ML SYR IV PRN ×2 (03:35→09:16)
[2018-12-23 04:04] VITALS: BMI 22.4
--- NOTE | 2018-12-23 08:17 | RAD REPORT ---
EXAM DESCRIPTION: US - Lower Extremity Artery Uni Ltd - 12/22/2018 11:17 pm CLINICAL HISTORY: PAIN Leg wound COMPARISON: Lower Extremity Artery Uni Ltd dated 08/24/2015 FINDINGS: Doppler interrogation of the right lower extremity arterial system was performed. Triphasi c waveforms are seen throughout the right lower extremity arterial system. No stenosis or occlusion i s seen. IMPRESSION: Unremarkable study.
[2018-12-23 08:35] LABS: Absolute Lymphocytes (CBC) 0.9 K/uL (0.7-4.9); Basophils % 0.5 % (0-1.3); Hematocrit 20.3 % (39.6-49.0); Lymphocytes % 10.9 % (15.3-44.8); MPV 8.2 fL (7.6-11.3); RBC Red Blood Cell Count 3.16 M/uL (4.33-5.43)
[2018-12-23 08:36] LABS: RBC Red Blood Cell Count 3.17 M/uL (4.33-5.43)
[2018-12-23 09:09] LABS: Potassium 3.7 mmol/L (3.5-5.1)
[2018-12-23 09:35] LABS: Ferritin 1.8 ng/mL (26-388); Folic Acid, (Folate) 12.4 ng/mL (3.1-17.5)
[2018-12-23] MEDS ORDERED: NA CHLORIDE 0.9% 250 ML ONE ×2 (10:50→15:53)
--- NOTE | 2018-12-23 13:36 | EKG ---
Test Date: 2018-12-23 Test Time: 01:10:28 Mobile Manager: RR MEASUREMENT RESULTS: Intervals: Rate: 68 MA: 162 QRSD: 94 QT: 412 QTc: 438 [place]: P: 75 MA: 162 QRS: 75 T: 56 INTERPRETIVE STATEMENTS: Normal sinus rhythm Normal ECG No previous ECG available for comparison Electronically Signed On 12-23-18 13:34:08 CDT by Bill Arriaga
--- NOTE | 2018-12-23 13:41 | P.PN ---
Subjective Date of Service: 12/23/18 Review of Systems 10-point ROS is otherwise unremarkable Physical Examination - Vital Signs Temperature: 98.6 F Blood Pressure: 127/68 Pulse: 60 Respirations: 15 Pulse Ox (%): 99 - Physical Exam General: Alert, In no apparent distress HEENT: Atraumatic, PERRLA, EOMI Neck: Supple, JVD not distended Respiratory: Clear to auscultation bilaterally, Normal air movement Cardiovascular: Regular rate/rhythm, Normal S1 S2 Gastrointestinal: Normal bowel sounds, No tenderness Musculoskeletal: Erythema, Tenderness, Warmth Integumentary: No rashes, Venous stasis ulcer Neurological: Normal speech, Normal tone, Normal affect Lymphatics: No axilla or inguinal lymphadenopathy - Studies Laboratory Data (last 24 hrs) 12/22/18 20:55: PT 12.4, INR 1.05, APTT 28.1 12/22/18 20:55: WBC 11.8 H, Hgb 4.5 L*, Hct 16.6 L*, Plt Count 242 12/22/18 20:55: Sodium 144, Potassium 3.8, BUN 21 H, Creatinine 1.40 H, Glucose 88, Total Bilirubin 0.2, AST 14 L, ALT 14, Alkaline Phosphatase 64 Microbiology Data (last 24 hrs): 12/22/18 21:02 Wound - Other Gram Stain - Final Medications List Reviewed: Yes Assessment And Plan - Current Problems (Diagnosis) (1) Iron (Fe) deficiency anemia Current Visit: No Status: Chronic Plan: Fe Def Anemia with hgb of < 5 at the admission. -S.P 1 Units PRBC and now pending another today -Hgb 6.6 at this time -Also started on IV fe at this time. -Will monitor closely Qualifiers: Iron deficiency anemia type: unspecified iron deficiency Qualified Code(s) : D50.9 - Iron deficiency anemia, unspecified (2) B12 deficiency Current Visit: No Status: Chronic Plan: Will Replace (3) Skin ulcer of lower leg with necrosis of muscle Current Visit: No Status: Chronic Plan: Acute Worsening of Chronic Venous ulcer with necrosis to the muscle -General Surgery consulted. Appreciated Reccs -Scheduled for I&D carlos -NPO after midnight -IV vanc and levaquin at this time Qualifiers: Laterality: unspecified laterality Qualified Code(s): L97.903 - Non- pressure chronic ulcer of unspecified part of unspecified lower leg with necrosis of muscle Discharge Plan: Home Plan to discharge in: Greater than 2 days - Code Status/Comfort Care Code Status Assessed: Yes Critical Care: No
[2018-12-23] MEDS: TRAMADOL HCL 50 MG TAB PO PRN ×2 (14:32→20:50)
[2018-12-23] MEDS: COLLAGENASE 30 GM OINTMENT TOP SCH (16:08)
[2018-12-23] MEDS ORDERED: VANCOMYCIN 1.5 GM in NA CHLORIDE 0.9% 500 ML IV SCH (18:00)
[2018-12-23] MEDS: VANCOMYCIN 1.5 GM in NA CHLORIDE 0.9% 500 ML IV SCH (20:49)
[2018-12-23 21:38] LABS: Hematocrit 25.6 % (39.6-49.0)
[2018-12-24] MEDS: Levofloxacin500mg IV 500 MG/100 ML BAG IV SCH (01:32)
[2018-12-24] MEDS: NA CHLORIDE 0.9% 1,000 ML IV SCH ×2 (03:40→17:00)
[2018-12-24] MEDS: COLLAGENASE 30 GM OINTMENT TOP SCH (09:00)
[2018-12-24] MEDS: CYANOCOBALAMIN 1,000 MCG TAB PO SCH (09:00)
[2018-12-24] MEDS: IRON SUCROSE 100 MG in NA CHLORIDE 0.9% 100 ML IV SCH (09:24)
[2018-12-24] MEDS ORDERED: Ringers Lactate 1,000 ML IV ONE (11:12)
[2018-12-24] MEDS ORDERED: LIDOCAINE 2% MPF 5 ML VIAL ONE (12:43)
[2018-12-24] MEDS ORDERED: PROPOFOL 200 MG/20 ML VIAL IV ONE (12:43)
[2018-12-24] MEDS ORDERED: MIDAZOLAM HCL 2 MG/2 ML INJ ONE (12:43)
[2018-12-24] MEDS ORDERED: FENTANYL CITR 100 MCG/2 ML ONE (12:43)
--- NOTE | 2018-12-24 13:03 | P.BOP ---
Preoperative diagnosis: infected venous stasis ulcer right leg Postoperative diagnosis: same Primary procedure: Excisional debridement of infected venous stasis ulcer right leg [id number] Estimated blood loss: <20cc Specimen: culture Findings: fibrin and devitalized tissue Anesthesia: General Complications: None Drain(s): Other (wet to dry) Transferred to: Recovery Room Condition: Good
[2018-12-24] MEDS ORDERED: KETOROLAC 30 MG/ML INJ ONE (13:17)
[2018-12-24] MEDS: HYDROMORPHONE HCL 1 MG/ML INJ ONE ×2 (13:33→13:38)
[2018-12-24 13:38] VITALS: O2SAT 98
--- NOTE | 2018-12-24 14:41 | P.PN ---
Subjective Date of Service: 12/24/18 Pt seen and examined at bedside. Chart Reviewed. Pt is Currently Awaiting Surgical Debriment with gen surgery. S.p 3 PRBC with Hgb now at 7.3. No c.o overnight doing well overall Review of Systems 10-point ROS is otherwise unremarkable Physical Examination - Vital Signs Temperature: 97.4 F Blood Pressure: 114/60 Pulse: 53 Respirations: 18 Pulse Ox (%): 98 - Physical Exam General: Alert, In no apparent distress HEENT: Atraumatic, PERRLA, EOMI Neck: Supple, JVD not distended Respiratory: Clear to auscultation bilaterally, Normal air movement Cardiovascular: Regular rate/rhythm, Normal S1 S2 Gastrointestinal: Normal bowel sounds, No tenderness Musculoskeletal: Erythema, Tenderness, Warmth Integumentary: No rashes Neurological: Normal speech, Normal tone, Normal affect Lymphatics: No axilla or inguinal lymphadenopathy - Studies Microbiology Data (last 24 hrs): 12/22/18 21:02 Wound - Other Gram Stain - Final Medications List Reviewed: Yes Assessment And Plan - Current Problems (Diagnosis) (1) Iron (Fe) deficiency anemia Current Visit: No Status: Chronic Plan: Fe Def Anemia with hgb of < 5 on the admission. -S.P 3 Units PRBC and now hgb 7.8 -Continue on IV Fe post procedure and replace B12 -Currently Asymptomatic. -Will have pt seen by hematology outpt Qualifiers: Iron deficiency anemia type: unspecified iron deficiency Qualified Code(s) : D50.9 - Iron deficiency anemia, unspecified (2) B12 deficiency Current Visit: No Status: Chronic Plan: Will replace at this time (3) Skin ulcer of lower leg with necrosis of muscle Current Visit: No Status: Chronic Plan: Acute Worsening of Chronic Venous ulcer with necrosis to the muscle -General Surgery consulted. Appreciated Reccs -Scheduled for I&D today -Wound culture + for klebseilla and Entero -IV vanc and levaquin at this time Qualifiers: Laterality: unspecified laterality Qualified Code(s): L97.903 - Non- pressure chronic ulcer of unspecified part of unspecified lower leg with necrosis of muscle - Plan Pending Surgical Procedure at this time. Possible Dc in next 24 to 48hrs after procedure on PO abx and F.u with Heme Discharge Plan: Home Plan to discharge in: 48 Hours - Code Status/Comfort Care Code Status Assessed: Yes Critical Care: No
[2018-12-24] MEDS: VANCOMYCIN 1.5 GM in NA CHLORIDE 0.9% 500 ML IV SCH (15:23)
[2018-12-24] MEDS: TRAMADOL HCL 50 MG TAB PO PRN (18:16)
[2018-12-24] MEDS ORDERED: POLYETHYL GLY 3350 17 GM/DOSE PO PRN (18:17)
[2018-12-25] MEDS: Levofloxacin500mg IV 500 MG/100 ML BAG IV SCH (00:14)
[2018-12-25] MEDS: NA CHLORIDE 0.9% 1,000 ML IV SCH ×2 (00:18→06:20)
--- NOTE | 2018-12-25 01:09 | OP ---
Date of Procedure: 12/24/2018 Surgeon: Fam Booker MD Preopeative Diagnosis: Infected right leg venous stasis ulcer. Postoperative Diagnosis: Infected right leg venous stasis ulcer. Procedure: Excisional debridement down to subcutaneous of a tender right leg venous stasis ulcer, 15 x 10 cm. Anesthesia: General plus local. Specimens: Culture and fibrin. Indications: This is the case of a 48-year-old patient with a severe venous stasis disease. He has large veins over the area have been treated in the past. He has been advised to use some dressings. His line of work does not let him just do the compressions because it felt hot. 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 He als o was [facility], but he says he has not been able to make it there yet. Now, he comes for a very tender venous stasis ulcer large with infection and I was called for debrid ement. Normally, a venous stasis ulcer does not hurt that much, but this one hurt so much that he ca nnot do it on the bedside and had taken to Anesthesia. The benefits, alternatives, and risks of debr idement were fully explained to the patient, which include but are not limited to infection, bleeding , damage to adjacent structures, anesthesia complication, recurrence, MT, and even . He also un derstands this may not relieve his symptoms. He might need more than one surgical intervention and h e will require wound care. He understood and signed a consent. Description Of Procedure: Patient was brought to the operating room, placed in supine position. Ane sthesia was done without complication. A time-out was called. Right leg was prepped and draped in a sterile fashion. Using a combination of a knife and curette, we proceeded to debride the entire are a of 15 x 10 cm down to subcu. There was some muscle exposed in that area since most of the fat is g one from him. The area was irrigated. Hemostasis obtained and the area was packed with wet-to-dry d ressing. The patient tolerated the procedure well. The patient was sent to Recovery in stable condi tion. TAYLOR/IDANIA Voice ID: [id number] Report ID: [id number]
[2018-12-25] MEDS: TRAMADOL HCL 50 MG TAB PO PRN ×2 (04:30→20:27)
[2018-12-25] MEDS: COLLAGENASE 30 GM OINTMENT TOP SCH (09:00)
[2018-12-25] MEDS: VANCOMYCIN 1.5 GM in NA CHLORIDE 0.9% 500 ML IV SCH (09:03)
[2018-12-25] MEDS: IRON SUCROSE 100 MG in NA CHLORIDE 0.9% 100 ML IV SCH (09:03)
[2018-12-25] MEDS: CYANOCOBALAMIN 1,000 MCG TAB PO SCH (09:03)
[2018-12-25] MEDS ORDERED: MORPHINE 2 MG/ML SYR IV ONE (12:17)
[2018-12-25 12:22] LABS: Absolute Lymphocytes (CBC) 1.1 K/uL (0.7-4.9); Basophils % 0.9 % (0-1.3); Hematocrit 26.3 % (39.6-49.0); Lymphocytes % 15.7 % (15.3-44.8); MPV 8.4 fL (7.6-11.3); RBC Red Blood Cell Count 3.84 M/uL (4.33-5.43)
--- NOTE | 2018-12-25 12:28 | P.PN ---
Subjective Date of Service: 12/25/18 Pt seen and examined at bedside. Chart Reviewed. Currently status post surgical debridement with surgery. Also status post 3 PRBC and currently getting iron infusion. This morning complained of having leg pain. No other complaints to offer. Denies having any chest pain shortness of breath, dizziness or any other associated symptoms. Review of Systems 10-point ROS is otherwise unremarkable Physical Examination - Vital Signs Temperature: 97.2 F Blood Pressure: 114/70 Pulse: 58 Respirations: 18 Pulse Ox (%): 97 - Physical Exam General: Alert, In no apparent distress HEENT: Atraumatic, PERRLA, EOMI Neck: Supple, JVD not distended Respiratory: Clear to auscultation bilaterally, Normal air movement Cardiovascular: Regular rate/rhythm, Normal S1 S2 Gastrointestinal: Normal bowel sounds, No tenderness Musculoskeletal: Erythema, Tenderness, Warmth Integumentary: No rashes Neurological: Normal speech, Normal tone, Normal affect Lymphatics: No axilla or inguinal lymphadenopathy - Studies Microbiology Data (last 24 hrs): 12/22/18 21:02 Wound - Other Gram Stain - Final 12/22/18 21:02 Wound - Other Culture & Sensitivity - Final Klebsiella Oxytoca Enterobacter Aerogenes Medications List Reviewed: Yes Assessment And Plan - Current Problems (Diagnosis) (1) Iron (Fe) deficiency anemia Current Visit: No Status: Chronic Plan: Fe Def Anemia with hgb of < 5 on the admission. -S.P 3 Units PRBC and now hgb 7.9 -Continue on IV Fe for now and will replace B12 as well -Currently Asymptomatic. Will monitor closely here in the hospital -Will have pt seen by hematology outpt Qualifiers: Iron deficiency anemia type: unspecified iron deficiency Qualified Code(s) : D50.9 - Iron deficiency anemia, unspecified (2) B12 deficiency Current Visit: No Status: Chronic Plan: Will replace at this time (3) Skin ulcer of lower leg with necrosis of muscle Current Visit: No Status: Chronic Plan: Acute Worsening of Chronic Venous ulcer with necrosis to the muscle -General Surgery consulted. Appreciated Reccs -status post incision and debridement with surgery POD 1. -Wound culture + for klebseilla and Entero -IV levaquin at this time -wound care consulted Qualifiers: Laterality: unspecified laterality Qualified Code(s): L97.903 - Non- pressure chronic ulcer of unspecified part of unspecified lower leg with necrosis of muscle - Plan Pending clinical improvement at this time. 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 Discharge Plan: Home Plan to discharge in: Greater than 2 days - Code Status/Comfort Care Code Status Assessed: Yes Critical Care: No
[2018-12-25 12:38] LABS: Bilirubin Total 0.3 mg/dL (0.2-1.0); Potassium 3.7 mmol/L (3.5-5.1); Protein, Total 6.4 g/dL (6.4-8.2)
[2018-12-26] MEDS: Levofloxacin500mg IV 500 MG/100 ML BAG IV SCH (00:18)
[2018-12-26 01:03] VITALS: TEMP 98.2
[2018-12-26] MEDS: TRAMADOL HCL 50 MG TAB PO PRN (04:56)
[2018-12-26 06:29] LABS: Absolute Lymphocytes (CBC) 1.4 K/uL (0.7-4.9); Basophils % 0.9 % (0-1.3); Hematocrit 28.6 % (39.6-49.0); Lymphocytes % 20.3 % (15.3-44.8); MPV 8.7 fL (7.6-11.3); RBC Red Blood Cell Count 4.13 M/uL (4.33-5.43)
[2018-12-26 07:02] LABS: Albumin 3.3 g/dL (3.4-5.0); Bilirubin Total 0.4 mg/dL (0.2-1.0); Potassium 3.7 mmol/L (3.5-5.1); Protein, Total 6.8 g/dL (6.4-8.2)
[2018-12-26] MEDS: CYANOCOBALAMIN 1,000 MCG TAB PO SCH (08:51)
[2018-12-26] MEDS: IRON SUCROSE 100 MG in NA CHLORIDE 0.9% 100 ML IV SCH (08:51)
[2018-12-26] MEDS: COLLAGENASE 30 GM OINTMENT TOP SCH (08:51)
--- NOTE | 2018-12-26 16:22 | P.DS ---
Admission Date: 12/23/18 Discharge Date: 12/26/18 Disposition: ROUTINE DISCHARGE Discharge Condition: GOOD Reason for Admission: Acute anemia Consultations: General surgery Procedures: Incision and drainage - Problems (1) Iron (Fe) deficiency anemia Status: Chronic Qualifiers: Iron deficiency anemia type: unspecified iron deficiency Qualified Code(s) : D50.9 - Iron deficiency anemia, unspecified (2) B12 deficiency Status: Chronic (3) Skin ulcer of lower leg with necrosis of muscle Status: Chronic Qualifiers: Laterality: unspecified laterality Qualified Code(s): L97.903 - Non- pressure chronic ulcer of unspecified part of unspecified lower leg with necrosis of muscle Brief History of Present Illness: 48-year-old male with significant past medical history of iron deficiency anemia who was admitted to the hospital for symptomatic anemia and right lower leg cellulitis with wound ulcer. Hospital Course: Overall during the hospital stay patient remained stable Patient was initially admitted to the hospital for symptomatic anemia most likely secondary to chronic iron and B12 deficiency. Patient received 3 units of PRBC here in the hospital had marked improvement in the hemoglobin in his symptoms. Patient also received iron IV while here in the hospital along with B12 supplements. Patient and had marked improvement in symptoms at the time general surgery recommended the patient get an incision and drainage done for his chronic skin wound in his right lower extremity. Patient also had blood cultures and wound cultures collected. Blood cultures were negative for any growth wound cultures were positive for Klebsiella and enterococcus which was sensitive to p.o. Levaquin. After patient was doing well here in the hospital for 24-48 hr patient was sent home under stable condition was asked to follow up with wound healing center in 1 week and to continue taking p.o. Levaquin iron and B12 supplements. Patient demonstrate understanding and thus was discharged home under stable condition. Vital Signs/Physical Exam: Temp Pulse Resp BP Pulse Ox 98.2 F 56 18 121/73 99 12/26/18 08:00 12/26/18 08:00 12/26/18 08:00 12/26/18 08:00 12/26/18 08:00 General: Alert, In no apparent distress HEENT: Atraumatic, PERRLA, EOMI Neck: Supple, JVD not distended Respiratory: Clear to auscultation bilaterally, Normal air movement Cardiovascular: Regular rate/rhythm, Normal S1 S2 Gastrointestinal: Normal bowel sounds, No tenderness Musculoskeletal: Erythema, Tenderness Integumentary: No rashes Neurological: Normal speech, Normal tone, Normal affect Lymphatics: No axilla or inguinal lymphadenopathy Laboratory Data at Discharge: WBC 7.1 K/uL (4.3-10.9) 12/26/18 06:01 Hgb 8.6 g/dL (13.6-17.9) L 12/26/18 06:01 Hct 28.6 % (39.6-49.0) L 12/26/18 06:01 Plt Count 227 K/uL (152-406) 12/26/18 06:01 PT 12.4 SECONDS (9.5-12.5) 12/22/18 20:55 INR 1.05 12/22/18 20:55 APTT 28.1 SECONDS (24.3-36.9) 12/22/18 20:55 Sodium 144 mmol/L (136-145) 12/26/18 06:01 Potassium 3.7 mmol/L (3.5-5.1) 12/26/18 06:01 BUN 14 mg/dL (7-18) 12/26/18 06:01 Creatinine 1.09 mg/dL (0.55-1.3) 12/26/18 06:01 Glucose 95 mg/dL (74-106) 12/26/18 06:01 Total Bilirubin 0.4 mg/dL (0.2-1.0) 12/26/18 06:01 AST 7 U/L (15-37) L 12/26/18 06:01 ALT 16 U/L (12-78) 12/26/18 06:01 Alkaline Phosphatase 64 U/L (45-117) 12/26/18 06:01 Home Medications: Ibuprofen [Advil] 200 mg PO TID PRN 12/23/18 Collagenase [Santyl Ointment] 1 gm TP DAILY #1 tube 12/26/18 Cyanocobalamin (Vitamin B-12) [Vitamin B-12] 1,000 mcg PO DAILY #30 capsule 07/15 Ferrous Sulfate [Iron] 325 mg PO DAILY #30 tablet 12/26/18 levoFLOXacin [Levaquin] 500 mg PO DAILY #14 tab 12/26/18 New Medications: Collagenase [Santyl Ointment] 1 gm TP DAILY #1 tube Cyanocobalamin (Vitamin B-12) [Vitamin B-12] 1,000 mcg PO DAILY #30 capsule Ferrous Sulfate [Iron] 325 mg PO DAILY #30 tablet levoFLOXacin [Levaquin] 500 mg PO DAILY #14 tab Patient Discharge Instructions: [facility] saturday, CALL FOR APPT [phone]. SANTYL to right leg and sterile gauze daily. May take a shower with dressing off. Activity: No lifting more than 10 lbs Followup: Fam Booker MD [ACTIVE - CAN ADMIT] - 12/30/18 ([facility])
[2018-12-26 17:03] VITALS: BP 113/61
[2018-12-28 17:45] LABS: Albumin, (SPE) 3.2 g/dL (3.8-4.8); Alpha-1-Globulins 0.4 g/dL (0.2-0.3); Alpha-2-Globulins 0.7 g/dL (0.5-0.9); Gamma Globulins 0.6 g/dL (0.8-1.7); INTERPRETATION REPORT
== END 2018-12-26 12:54 | disposition home or self-care (01) | DRG 264 ==
LOC: ER 19:50 → ERHOLD 12-23 00:09 → 2ND 12-23 01:25
PROVIDERS: ADMIT Hospitalist; ATTEND Family Medicine
PROC: 30233N1 Transfusion of Nonautologous Red Blood Cells into Peripheral Vein, Percutaneous Approach (ICD-10-PCS; 2018-12-23)
PROC: 0JBN0ZZ Excision of Right Lower Leg Subcutaneous Tissue and Fascia, Open Approach (ICD-10-PCS; principal; 2018-12-24 12:45)
DX: I83.212 Varicose veins of right lower extremity with both ulcer of calf and inflammation (principal); L97.213 Non-pressure chronic ulcer of right calf with necrosis of muscle; D50.9 Iron deficiency anemia, unspecified; D51.9 Vitamin B12 deficiency anemia, unspecified; B96.1 Klebsiella pneumoniae [K. pneumoniae] as the cause of diseases classified elsewhere; B95.2 Enterococcus as the cause of diseases classified elsewhere; F17.210 Nicotine dependence, cigarettes, uncomplicated; G25.81 Restless legs syndrome
CPT/HCPCS: 36415; 36430; 80048; 80053; 80076; 80202; 81003; 81015; 82607; 82728; 82746; 82962; 83540; 83605; 83615; 84145; 84165; 84466; 85014; 85018; 85025; 85044; 85610; 85652; 85730; 86140; 86850; 86900; 86901; 87040; 87070; 87075; 87077; 87176; 87186; 87205; 93005; 93926; 93971; 96365; 96367; 96375; 99285; J1170; J2250; J2270; J2543; J2704; J3010; J3590; J7030; P9016

== ENCOUNTER 2021-10-27 20:21 | Emergency (ER) | payer SELFPAY ==
[2021-10-27] MEDS ORDERED: ALBUTEROL 2.5 MG/3 ML NEB SOL ONE (21:20)
[2021-10-27] MEDS ORDERED: IPRATROPIUM BROM 0.5MG/2.5ML ONE (21:20)
[2021-10-27] MEDS ORDERED: METHYLPREDNISOLONE 125 MG INJ ONE (21:20)
--- NOTE | 2021-10-27 23:37 | ER ---
Nurse's Notes [facility] Name: Won Vera Age: 51 yrs Sex: Male : 1970 Arrival Date: 10/27/2021 Time: : Bed 28 Private MD: Diagnosis: Mild intermittent asthma with (acute) exacerbation Presentation: 10/27 21:10 Chief complaint: Patient states: he is having difficulty breathing for several days he bb has hx of asthma. 21:27 Coronavirus screen: difficulty breathing, Client presents with at least one sign or bb symptom that may indicate coronavirus-19. Standard/surgical mask placed on the client. Ebola Screen: No symptoms or risks identified at this time. Initial Sepsis Screen: Does the patient meet any 2 criteria? No. Patient's initial sepsis screen is negative. Does the patient have a suspected source of infection? No. Patient's initial sepsis screen is negative. Risk Assessment: Do you want to hurt yourself or someone else? Patient reports no desire to harm self or others. Onset of symptoms was October 27, 2021. 21:27 Method Of Arrival: Ambulatory bb 21:27 Acuity: DELANEY 3 bb Triage Assessment: 21:28 General: Appears uncomfortable, Behavior is cooperative, anxious. Pain: Denies pain. bb Neuro: Level of Consciousness is awake, alert, obeys commands, Oriented to person, place, time, situation. Cardiovascular: Capillary refill < 3 seconds Patient's skin is warm and dry. Respiratory: Reports shortness of breath Respiratory effort is labored, Respiratory pattern is tachypnea Breath sounds are diminished bilaterally. Onset: The symptoms/episode began/occurred yesterday, the patient has moderate shortness of breath. GI: No signs and/or symptoms were reported involving the gastrointestinal system. Derm: Skin is pink, warm \T\ dry. Musculoskeletal: Circulation, motion, and sensation intact. Historical: - Allergies: 21:28 No Known Allergies; bb - PMHx: :28 Anemia; Asthma; RLS; bb - Immunization history:: Moderna x 3. - Social history:: Smoking status: Patient reports the use of cigarette tobacco products. Screenin:00 Abuse screen: Denies threats or abuse. Nutritional screening: No deficits noted. jb4 Tuberculosis screening: No symptoms or risk factors identified. Fall Risk None identified. Assessment: 23:15 Reassessment: Patient appears in no apparent distress at this time. Patient and/or jb4 family updated on plan of care and expected duration. Pain level reassessed. Patient is alert, oriented x 3, equal unlabored respirations, skin warm/dry/pink. 23:59 Reassessment: Patient appears in no apparent distress at this time. Patient and/or jb4 family updated on plan of care and expected duration. Pain level reassessed. Patient is alert, oriented x 3, equal unlabored respirations, skin warm/dry/pink. Vital Signs: 21:27 BP 158 / 106; Pulse 79; Resp 22 S; Temp 98.3(TE); Pulse Ox 95% on R/A; Weight 77.11 kg bb (R); Height 5 ft. 11 in. (180.34 cm) (R); Pain 0/10; 23:15 BP 138 / 82; Pulse 63; Resp 21; Pulse Ox 92% on R/A; jb4 23:59 Pulse Ox 98% on R/A; jb4 21:27 Body Mass Index 23.71 (77.11 kg, 180.34 cm) bb ED Course: 21:03 Patient arrived in ED. ja2 21:07 Shaan Meyer DO is Attending Physician. ms3 21:25 Inserted saline lock: 20 gauge in right forearm, using aseptic technique. bb 21:28 Triage completed. bb 21:28 Arm band placed on Patient placed in waiting room, in a wheelchair, on oxygen, bb breathing treatment given. 21:36 Micky Hahn, RN is Primary Nurse. jb4 22:00 Patient has correct armband on for positive identification. Bed in low position. Call jb4 light in reach. Side rails up X 1. Client placed on continuous cardiac and pulse oximetry monitoring. NIBP monitoring applied. compliance monitor on. 23:35 Lon Haynes DO is Referral Physician. ms3 23:35 Quincy Loera MD is Referral Physician. ms3 23:59 No provider procedures requiring assistance completed. IV discontinued, intact, jb4 bleeding controlled, No redness/swelling at site. Pressure dressing applied. Administered Medications: 21:26 Drug: Albuterol 2.5 mg Route: Inhalation; bb 21:26 Drug: AtroVENT (ipratropium) Aerosol 0.5 mg Route: Inhalation; bb 21:26 Drug: SOLU-Medrol (methylPrednisoLONE) 125 mg Route: IVP; Site: right forearm; bb 10/28 00:00 Follow up: Response: No adverse reaction jb4 Outcome: 10/27 23:36 Discharge ordered by . ms3 23:59 Discharged to home ambulatory. jb4 23:59 Condition: stable 23:59 Discharge instructions given to patient, Instructed on discharge instructions, follow up and referral plans. medication usage, Demonstrated understanding of instructions, follow-up care, medications, Prescriptions given X 2. 10/28 00:00 Patient left the ED. jb4 Signatures: Renae Erazo, RN RN bb Micky Hahn RN RN jb4 Shaan Meyer DO DO ms3 Jane Guerrero
--- NOTE | 2021-10-27 23:37 | EDPHYS ---
Physician Documentation [facility] Name: Won Vera Age: 51 yrs Sex: Male : 1970 Arrival Date: 10/27/2021 Time: 21:03 Bed 28 Private MD: ED Physician Shaan Meyer HPI: 10/28 03:41 This 51 yrs old Male presents to ER via Ambulatory with complaints of Shortness Of ms3 Breath, Asthma Exacerbation. 03:41 The patient has shortness of breath at rest. Onset: The symptoms/episode began/occurred ms3 2 day(s) ago. Duration: The symptoms are continuous, and are steadily getting worse. The patient's shortness of breath has no apparent modifying factors. Associated signs and symptoms: Pertinent negatives: fever, vomiting. Severity of symptoms: At their worst the symptoms were severe in the emergency department the symptoms are unchanged Pain is currently a 0 / 10. Historical: - Allergies: 10/27 21:28 No Known Allergies; bb - PMHx: 21:28 Anemia; Asthma; RLS; bb - Immunization history:: Moderna x 3. - Social history:: Smoking status: Patient reports the use of cigarette tobacco products. ROS: 10/28 03:41 Constitutional: Negative for fever, and chills. Neck: Negative for injury, pain, and ms3 swelling, Cardiovascular: Negative for chest pain, and palpitations. Abdomen/GI: Negative for abdominal pain, nausea, vomiting, diarrhea, and constipation, MS/Extremity: Negative for injury and deformity, Skin: Negative for injury, rash, and discoloration, Neuro: Negative for headache, weakness, numbness, tingling. Respiratory: Positive for shortness of breath. All other systems are negative. Exam: 03:41 Constitutional: This is a well developed, well nourished patient who is awake, alert, ms3 and in no acute distress. Head/Face: Normocephalic, atraumatic. Neck: Trachea midline, no cervical lymphadenopathy. Supple, full range of motion without nuchal rigidity, or vertebral point tenderness. No Meningismus. Chest/axilla: Normal chest wall appearance and motion. Nontender with no deformity. Cardiovascular: Regular rate and rhythm with a normal S1 and S2. No gallops, murmurs, or rubs. Normal PMI, no JVD. No pulse deficits. 03:41 Abdomen/GI: Soft, non-tender, with normal bowel sounds. No distension or tympany. No guarding or rebound. No evidence of tenderness throughout. Skin: Warm, dry with normal turgor. Normal color with no rashes, no lesions, and no evidence of cellulitis. Psych: Awake, alert, with orientation to person, place and time. Behavior, mood, and affect are within normal limits. 03:41 Respiratory: moderate respiratory distress is noted, Respirations: labored breathing, that is moderate, Breath sounds: wheezing: expiratory Vital Signs: 10/27 21:27 BP 158 / 106; Pulse 79; Resp 22 S; Temp 98.3(TE); Pulse Ox 95% on R/A; Weight 77.11 kg bb (R); Height 5 ft. 11 in. (180.34 cm) (R); Pain 0/10; 23:15 BP 138 / 82; Pulse 63; Resp 21; Pulse Ox 92% on R/A; jb4 23:59 Pulse Ox 98% on R/A; jb4 21:27 Body Mass Index 23.71 (77.11 kg, 180.34 cm) bb MDM: 21:07 Patient medically screened. ms3 10/28 03:41 Differential diagnosis: Asthma exacerbation. Data reviewed: vital signs, nurses notes. ms3 Counseling: I had a detailed discussion with the patient and/or guardian regarding: the historical points, exam findings, and any diagnostic results supporting the discharge/admit diagnosis, the need for outpatient follow up, to return to the emergency department if symptoms worsen or persist or if there are any questions or concerns that arise at home. ED course: Discussed physical exam findings with patient. Patient to follow-up with primary care physician in 2 to 3 days. Patient understands and agrees with plan. All questions were answered. Return precautions discussed include worsening symptoms, or any other concerns. On reevaluation patient is alert and oriented x4, in no apparent distress, nontoxic-appearing, speaking full sentences, ambulatory in emergency department.. Administered Medications: 10/27 21:26 Drug: Albuterol 2.5 mg Route: Inhalation; bb 21:26 Drug: AtroVENT (ipratropium) Aerosol 0.5 mg Route: Inhalation; bb 21:26 Drug: SOLU-Medrol (methylPrednisoLONE) 125 mg Route: IVP; Site: right forearm; bb 10/28 00:00 Follow up: Response: No adverse reaction jb4 Disposition Summary: 10/27/21 23:36 Discharge Ordered Location: Home ms3 Condition: Stable ms3 Diagnosis - Mild intermittent asthma with (acute) exacerbation ms3 Followup: ms3 - With: Lon Haynes DO - When: 2 - 3 days - Reason: Recheck today's complaints Followup: ms3 - With: Quincy Loera MD - When: 2 - 3 days - Reason: Recheck today's complaints Discharge Instructions: - Discharge Summary Sheet ms3 - Asthma, Adult ms3 Forms: - Medication Reconciliation Form ms3 - Thank You Letter ms3 - Antibiotic Education ms3 - Prescription Opioid Use ms3 Prescriptions: - albuterol sulfate 90 mcg/actuation Inhalation HFA aerosol inhaler - inhale 2 puff by INHALATION route every 4 hours; 1 Pump; Refills: 0, Product ms3 Selection Permitted - Prednisone 20 mg Oral Tablet - take 3 tablets by ORAL route once daily for 5 days; 15 tablet; Refills: 0, ms3 Product Selection Permitted Signatures: Renae Erazo RN RN Shaan Rodriguez DO DO ms3 Micky Hahn RN jb4
[2021-10-28 00:35] VITALS: TEMP 98.3
[2021-10-28 00:38] VITALS: BP 138/82
[2021-10-28 00:39] VITALS: O2SAT 98
== END 2021-10-28 | disposition home or self-care (01) ==
LOC: ER 20:21
DX: J45.21 Mild intermittent asthma with (acute) exacerbation (principal); Z72.0 Tobacco use
CPT/HCPCS: 96374; 99285; J2930

== ENCOUNTER 2022-02-24 22:02 | Emergency (ER) | payer SELFPAY ==
[2022-02-24] MEDS ORDERED: predniSONE 20 MG TAB ONE (23:49)
[2022-02-24] MEDS ORDERED: CETIRIZINE HCL 5 MG TABLET ONE (23:50)
[2022-02-24] MEDS ORDERED: FAMOTIDINE 20 MG TAB ONE (23:50)
[2022-02-24] MEDS ORDERED: ALBUTEROL 2.5 MG/3 ML NEB SOL ONE (23:51)
--- NOTE | 2022-02-25 01:43 | ER ---
Nurse's Notes [facility] Name: Won Vera Age: 51 yrs Sex: Male : 1970 Arrival Date: 02/24/2022 Time: 22:04 Bed 25 Private MD: Diagnosis: Unspecified asthma with (acute) exacerbation Presentation: 02/24 22:16 Chief complaint: Patient states: I have asthma and I am out of my inhalers. 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 Coronavirus screen: Client presents with at least one sign or symptom that may indicate coronavirus-19. Ebola Screen: No symptoms or risks identified at this time. Initial Sepsis Screen: Does the patient meet any 2 criteria? No. Patient's initial sepsis screen is negative. Does the patient have a suspected source of infection? No. Patient's initial sepsis screen is negative. Risk Assessment: Do you want to hurt yourself or someone else? Patient reports no desire to harm self or others. Onset of symptoms is unknown. 22:16 Method Of Arrival: Ambulatory [facility] 22:16 Acuity: DELANEY 3 bm7 Triage Assessment: 22:17 General: Appears in no apparent distress. comfortable, Behavior is calm, cooperative, bm7 appropriate for age. Pain: Denies pain. EENT: No deficits noted. No signs and/or symptoms were reported regarding the EENT system. Neuro: No deficits noted. Cardiovascular: No deficits noted. Respiratory: Reports shortness of breath cough that is Airway is patent Respiratory effort is even, unlabored, Respiratory pattern is regular, symmetrical, Breath sounds are clear bilaterally. Onset: The symptoms/episode began/occurred suddenly, the patient has moderate shortness of breath. GI: No deficits noted. No signs and/or symptoms were reported involving the gastrointestinal system. : No deficits noted. No signs and/or symptoms were reported regarding the genitourinary system. Derm: No deficits noted. No signs and/or symptoms reported regarding the dermatologic system. Musculoskeletal: No deficits noted. No signs and/or symptoms reported regarding the musculoskeletal system. Historical: - Allergies: 22:17 No Known Allergies; bm7 - Home Meds: 22:17 None [Active]; bm7 - PMHx: 22:17 Anemia; Asthma; RLS; bm7 - PSHx: 22:17 None; bm7 - Immunization history:: Adult Immunizations up to date, Client reports receiving the 2nd dose of the Covid vaccine, Client reports receiving the 1st dose of the Covid vaccine. - Social history:: Smoking status: Patient reports the use of cigarette tobacco products, smokes one-half pack cigarettes per day. Screenin/02 01:52 Abuse screen: Denies threats or abuse. Nutritional screening: No deficits noted. vc1 Tuberculosis screening: No symptoms or risk factors identified. Fall Risk No fall in past 12 months (0 pts). No secondary diagnosis (0 pts). No IV (0 pts). Ambulatory Aid- None/Bed Rest/Nurse Assist (0 pts). Gait- Normal/Bed Rest/Wheelchair (0 pts) Mental Status- Oriented to own ability (0 pts). Total Cui Fall Scale indicates No Risk (0-24 pts). Assessment: 02/24 23:00 Reassessment: Patient and/or family updated on plan of care and expected duration. Pain vc1 level reassessed. Patient is alert, oriented x 3, equal unlabored respirations, skin warm/dry/pink. Patient states symptoms have improved. 02/25 00:00 Reassessment: Patient and/or family updated on plan of care and expected duration. Pain vc1 level reassessed. Patient is alert, oriented x 3, equal unlabored respirations, skin warm/dry/pink. Patient states feeling better. Patient states symptoms have improved. 01:00 Reassessment: No changes from previously documented assessment. Patient and/or family vc1 updated on plan of care and expected duration. Pain level reassessed. Patient is alert, oriented x 3, equal unlabored respirations, skin warm/dry/pink. 01:55 Cardiovascular: Rhythm is irregular. tw5 Vital Signs: 02/24 22:15 BP 124 / 90; Pulse 65; Resp 18; Temp 97.7(TE); Pulse Ox 99% on R/A; Weight 74.84 kg bm7 (R); Height 5 ft. 11 in. (180.34 cm); Pain 0/10; 23:00 BP 105 / 64; Pulse 64; Resp 20; Pulse Ox 99% ; vc1 02/25 00:00 BP 97 / 71; Pulse 67; Resp 19; Pulse Ox 99% ; vc1 01:00 BP 107 / 66; Pulse 79; Resp 18; Pulse Ox 99% ; vc1 10 22:15 Body Mass Index 23.01 (74.84 kg, 180.34 cm) bm7 ED Course: 02/24 22:04 Patient arrived in ED. bp1 22:17 Triage completed. bm7 22:17 Arm band placed on left wrist. bm7 22:33 Deidre Tran FNP-C is [facility]. snw 22:33 Salvador Brunner MD is Attending Physician. snw 02/25 01:51 Nazia Rosales, RN is Primary Nurse. vc1 01:52 No provider procedures requiring assistance completed. Patient did not have IV access vc1 during this emergency room visit. 01:55 Patient has correct armband on for positive identification. tw5 Administered Medications: 00:00 Drug: predniSONE 40 mg Route: PO; vc1 01:56 Follow up: Response: No adverse reaction tw5 00:00 Drug: Pepcid (famotidine) 20 mg Route: PO; vc1 01:56 Follow up: Response: No adverse reaction tw5 00:00 Drug: ZyrTEC - Cetirizine 10 mg Route: PO; vc1 01:56 Follow up: Response: No adverse reaction tw5 00:00 Drug: Albuterol 2.5 mg Route: Inhalation; vc1 Medication: 01:55 VIS not applicable for this client. tw5 Outcome: 01:42 Discharge ordered by . snw 01:55 Discharged to home ambulatory. tw5 01:55 Condition: good 01:55 Discharge instructions given to patient, Instructed on discharge instructions, follow up and referral plans. Demonstrated understanding of instructions, follow-up care, Prescriptions given X 4. 01:56 Patient left the ED. tw5 Signatures: Deidre Tran FNP-C [employer] Tatiana Keith bp1 Tatiana Ware RN RN bm7 Alessia Dickson tw5 Nazia Rosales, NGA RN vc1 Corrections: (The following items were deleted from the chart) 02/24 22:19 22:15 Pulse 65bpm; Resp 18bpm; Pulse Ox 99% RA; Temp 97.7F Temporal; 74.84 kg Reported; bm7 Height 5 ft. 11 in.; BMI: 23.0; Pain 0/10; bm7
--- NOTE | 2022-02-25 01:43 | EDPHYS ---
Physician Documentation [facility] Name: Won Vera Age: 51 yrs Sex: Male : 1970 Arrival Date: 02/24/2022 Time: 22:04 Bed 25 Private MD: ED Physician Salvador Brunner HPI: 02/24 23:37 This 51 yrs old Male presents to ER via Ambulatory with complaints of Asthma snw Exacerbation, Breathing Difficulty. 23:37 The patient presents to the emergency department with wheezing, Current therapy: snw albuterol inhaler, that began after exposure to smoke, the patient was reported to have audible wheezing, chest congestion, non-productive cough, trouble breathing. Onset: The symptoms/episode began/occurred suddenly, today. Modifying factors: The symptoms are alleviated by nothing, the symptoms are aggravated by exertion. Associated signs and symptoms: The patient has no apparent associated signs or symptoms. Severity of symptoms: At their worst the symptoms were moderate in the emergency department the symptoms are unchanged. The patient has experienced similar episodes in the past. It is unknown whether or not the patient has recently seen a physician. Historical: - Allergies: 22:17 No Known Allergies; bm7 - Home Meds: 22:17 None [Active]; bm7 - PMHx: 22:17 Anemia; Asthma; RLS; bm7 - PSHx: 22:17 None; bm7 - Immunization history:: Adult Immunizations up to date, Client reports receiving the 2nd dose of the Covid vaccine, Client reports receiving the 1st dose of the Covid vaccine. - Social history:: Smoking status: Patient reports the use of cigarette tobacco products, smokes one-half pack cigarettes per day. ROS: 23:36 Constitutional: Negative for fever, chills, and weight loss, Eyes: Negative for injury, snw pain, redness, and discharge, ENT: Negative for injury, pain, and discharge, Neck: Negative for injury, pain, and swelling, Cardiovascular: Negative for chest pain, palpitations, and edema. 23:36 Abdomen/GI: Negative for abdominal pain, nausea, vomiting, diarrhea, and constipation. 23:36 : Negative for injury, bleeding, discharge, and swelling, MS/Extremity: Negative for injury and deformity, Skin: Negative for injury, rash, and discoloration, Neuro: Negative for headache, weakness, numbness, tingling, and seizure. 23:36 Respiratory: Positive for cough, shortness of breath, wheezing. 23:36 Back: Positive for pain at rest, pain with movement. Exam: 23:35 Head/Face: Normocephalic, atraumatic. Eyes: Pupils equal round and reactive to light, snw extra-ocular motions intact. Lids and lashes normal. Conjunctiva and sclera are non-icteric and not injected. Cornea within normal limits. Periorbital areas with no swelling, redness, or edema. ENT: Nares patent. No nasal discharge, no septal abnormalities noted. Tympanic membranes are normal and external auditory canals are clear. Oropharynx with no redness, swelling, or masses, exudates, or evidence of obstruction, uvula midline. Mucous membranes moist. Neck: Trachea midline, no thyromegaly or masses palpated, and no cervical lymphadenopathy. Supple, full range of motion without nuchal rigidity, or vertebral point tenderness. No Meningismus. Chest/axilla: Normal chest wall appearance and motion. Nontender with no deformity. No lesions are appreciated. Cardiovascular: Regular rate and rhythm with a normal S1 and S2. No gallops, murmurs, or rubs. Normal PMI, no JVD. No pulse deficits. Abdomen/GI: Soft, non-tender, with normal bowel sounds. No distension or tympany. No guarding or rebound. No evidence of tenderness throughout. Back: No spinal tenderness. No costovertebral tenderness. Full range of motion. Skin: Warm, dry with normal turgor. Normal color with no rashes, no lesions, and no evidence of cellulitis. MS/ Extremity: Pulses equal, no cyanosis. Neurovascular intact. Full, normal range of motion. Neuro: Awake and alert, GCS 15, oriented to person, place, time, and situation. Cranial nerves II-XII grossly intact. Motor strength 5/5 in all extremities. Sensory grossly intact. Cerebellar exam normal. Normal gait. 23:35 Constitutional: The patient appears alert, awake, anxious. 23:35 Respiratory: mild respiratory distress is noted, Respirations: prolonged exhalation, tachypnea, Breath sounds: bronchial sounds, wheezing: expiratory is heard diffusely. 02/25 01:52 Respiratory: the patient does not display signs of respiratory distress, Respirations: snw normal, Breath sounds: significantly improved, mild exp wheezing upper lobes. Vital Signs: 02/24 22:15 BP 124 / 90; Pulse 65; Resp 18; Temp 97.7(TE); Pulse Ox 99% on R/A; Weight 74.84 kg bm7 (R); Height 5 ft. 11 in. (180.34 cm); Pain 0/10; 23:00 BP 105 / 64; Pulse 64; Resp 20; Pulse Ox 99% ; vc1 02/25 00:00 BP 97 / 71; Pulse 67; Resp 19; Pulse Ox 99% ; vc1 01:00 BP 107 / 66; Pulse 79; Resp 18; Pulse Ox 99% ; vc1 02/24 22:15 Body Mass Index 23.01 (74.84 kg, 180.34 cm) bm7 MDM: 02/24 22:41 Patient medically screened. snw 23:36 Data reviewed: vital signs, nurses notes. Data interpreted: Pulse oximetry: on room air snw is 96 %. Interpretation: acceptable. Counseling: I had a detailed discussion with the patient and/or guardian regarding: the historical points, exam findings, and any diagnostic results supporting the discharge/admit diagnosis, the presence of at least one elevated blood pressure reading (>120/80) during this emergency department visit, the need for outpatient follow up, to return to the emergency department if symptoms worsen or persist or if there are any questions or concerns that arise at home, smoking cessation. Special discussion: I have referred the patient to see his PCP for further evaluation of high blood pressure. Based on the history and exam findings, there is no indication for further emergent testing or inpatient evaluation. I discussed with the patient/guardian the need to see the primary care provider for further evaluation of the symptoms. Administered Medications: 02/25 00:00 Drug: predniSONE 40 mg Route: PO; vc1 01:56 Follow up: Response: No adverse reaction tw5 00:00 Drug: Pepcid (famotidine) 20 mg Route: PO; vc1 01:56 Follow up: Response: No adverse reaction tw 00:00 Drug: ZyrTEC - Cetirizine 10 mg Route: PO; vc1 01:56 Follow up: Response: No adverse reaction tw5 00:00 Drug: Albuterol 2.5 mg Route: Inhalation; vc1 Disposition Summary: 02/25/22 01:42 Discharge Ordered Location: Home snw Condition: Stable snw Diagnosis - Unspecified asthma with (acute) exacerbation snw Followup: snw - With: Emergency Department - When: As needed - Reason: Worsening of condition Followup: snw - With: Private Physician - When: 2 - 3 days - Reason: Recheck today's complaints, Continuance of care, Re-evaluation by your physician Discharge Instructions: - Discharge Summary Sheet snw - Asthma, Adult snw Forms: - Medication Reconciliation Form snw - Thank You Letter snw - Antibiotic Education snw - Prescription Opioid Use snw Prescriptions: - albuterol sulfate 90 mcg/actuation Inhalation HFA aerosol inhaler - inhale 2 puff by INHALATION route every 4-6 hours; 1 Each; Refills: 0, Product snw Selection Permitted - Zyrtec 10 mg Oral Tablet - take 1 tablet by ORAL route once daily As needed; 20 tablet; Refills: 0, snw Product Selection Permitted - Prednisone 20 mg Oral Tablet - take 2 tablets by ORAL route once daily for 5 days; 10 tablet; Refills: 0, snw Product Selection Permitted - Pepcid 20 mg Oral Tablet - take 1 tablet by ORAL route once daily; 20 tablet; Refills: 0, Product snw Selection Permitted Signatures: Deidre Tran, DEEPA-C [employer] Tatiana Ware, RN RN bm7 Nazia Rosales RN RN vc1 Alessia Dickson tw5
[2022-02-25 02:47] VITALS: TEMP 97.7; O2SAT 99
[2022-02-25 02:50] VITALS: BP 107/66
== END 2022-02-25 01:56 | disposition home or self-care (01) ==
LOC: ER 22:02
DX: J45.901 Unspecified asthma with (acute) exacerbation (principal); D64.9 Anemia, unspecified; G25.81 Restless legs syndrome; F17.210 Nicotine dependence, cigarettes, uncomplicated
CPT/HCPCS: 99284; J7512

== ENCOUNTER 2024-01-12 19:40 | Emergency (ER) | payer OTHER ==
--- NOTE | 2024-01-12 20:35 | RAD REPORT ---
EXAM DESCRIPTION: US - Extremity Venous Uni Ltd - 01/12/2024 8:30 pm CLINICAL HISTORY: Swelling COMPARISON: None. TECHNIQUE: Real-time sonographic evaluation of the right lower extremity deep venous system was perf ormed. FINDINGS: Normal compressibility, flow augmentation, phasic flow and spontaneous flow is identified in the right lower extremity deep venous system. No intraluminal filling defects seen. IMPRESSION: No DVT in the right lower extremity.
--- NOTE | 2024-01-12 20:45 | RAD REPORT ---
EXAM DESCRIPTION: US - Lower Extremity Artery Uni Ltd - 01/12/2024 8:29 pm CLINICAL HISTORY: Pain;Swelling COMPARISON: Lower Extremity Artery Uni Ltd dated 12/22/2018 FINDINGS: Color Doppler, grayscale, and spectral analysis was performed. Triphasic flow present within the common femoral artery, superficial femoral artery, popliteal artery , posterior tibial artery, and dorsalis pedis artery. IMPRESSION: No flow limiting arterial stenosis in the right lower extremity.
[2024-01-13 00:19] LABS: Absolute Eosinophils 0.1 K/uL (0-0.5); Absolute Lymphocytes (CBC) 1.3 K/uL (0.7-4.9); Absolute Monocytes 0.4 K/uL (0.1-1.3); Absolute Neutrophil 4.7 K/uL (1.8-8.0); Basophils % 0.5 % (0-1.3); Eosinophils % 1.8 % (0-4.4); Hematocrit 26.3 % (39.6-49.0); Hemoglobin 7.5 g/dL (13.6-17.9); Lymphocytes % 20.1 % (15.3-44.8); MCH 18.5 pg (27.0-35.0); MCHC 28.3 g/dL (32.0-36.0); MCV 65.2 fL (80-100); MPV 7.2 fL (7.6-11.3); Monocytes % 5.9 % (3.3-12.3); Neutrophils % 71.7 % (41.7-73.7); Nucleated Red Blood Cells % 0.1 % (0-0); Platelets 348 thou/uL (152-406); RBC Red Blood Cell Count 4.04 M/uL (4.33-5.43); Red Cell Distribution Width 19.7 % (12.1-15.2)
[2024-01-13 00:21] LABS: Albumin 3.3 g/dL (3.4-5.0); Albumin/Globulin Ratio 0.9 (1.1-1.8); Anion Gap 9.6 mEq/L (5.0-15.0); Bilirubin Total 0.2 mg/dL (0.2-1.0); Globulin 3.7 g/dL (2.3-3.5); PT Prothrombin Time 12.5 SECONDS (9.4-12.5); PTT, Activated Partial Thromb 33.8 SECONDS (24.3-36.9); Potassium 3.6 mEq/L (3.5-5.1); Protime INR 1.12
--- NOTE | 2024-01-13 00:34 | EDPHYS ---
Physician Documentation [facility] Name: Won Vera Age: 53 yrs Sex: Male : 1970 Arrival Date: 01/12/2024 Time: 19:40 Bed 17 Private MD: ED Physician Juan Manuel Givens HPI: 01/11 20:11 This 53 yrs old Male presents to ER via Ambulatory with complaints of Wound Check - Leg.rn 20:11 The patient presents with cellulitis of the right leg. Onset: The symptoms/episode rn began/occurred at an unknown time. Possible cause(s): unknown. Modifying factors: the symptoms are alleviated by nothing, the symptoms are aggravated by walking, touching. Severity of symptoms: At their worst the symptoms were moderate, in the emergency department the symptoms are unchanged. The patient has experienced similar episodes in the past. Patient reports wound to right leg that is getting worse over the last 2 months. Increased drainage and foul smell. Has taken 2 rounds of antibiotics in the last 2 months without helping. Has quit smoking.. Historical: - Allergies: 20:06 No Known Allergies; cm10 - PMHx: 20:06 Anemia; Asthma; RLS; COPD; cm10 - Immunization history:: Adult Immunizations up to date. - Infectious Disease History:: Denies. - Social history:: Smoking status: Patient/guardian denies using tobacco, Stopped _ months ago 6. - Family history:: not pertinent. - Hospitalizations: : No recent hospitalization is reported. ROS: 20:11 Constitutional: Negative for fever, chills, and weight loss, Cardiovascular: Negative rn for chest pain, palpitations Respiratory: Negative for shortness of breath, cough, wheezing, and pleuritic chest pain, Abdomen/GI: Negative for abdominal pain, nausea, vomiting, diarrhea, and constipation, MS/Extremity: Positive for pain and wound to right leg Skin: Positive for wound and drainage to right leg Neuro: Negative for headache, weakness, numbness, tingling, and seizure, Exam: 20:11 Constitutional: This is a well developed, well nourished patient who is awake, alert, rn and in no acute distress. Cardiovascular: Regular rate and rhythm. No pulse deficits. Respiratory: No increased work of breathing, no retractions or nasal flaring. Abdomen/GI: Soft, non-tender MS/ Extremity: No cyanosis. Open wounds over medial distal right leg with drainage and foul smell. Chronic skin changes underlying these wounds. No gangrene. No cyanosis. Weak but palpable pulse 01/12 00:20 ECG was reviewed by the Attending Physician. rn Vital Signs: 01/11 20:08 BP 169 / 88; Pulse 77; Resp 16; Temp 97.8(O); Pulse Ox 100% on R/A; Weight 77.11 kg; cm10 Height 6 ft. 0 in. ; Pain 9/10; 23:30 BP 144 / 92; Pulse 58; Resp 16; Pulse Ox 100% ; pc2 01/12 00:30 BP 156 / 94; Pulse 73; Resp 18; Pulse Ox 100% on R/A; pc2 01/11 20:08 Body Mass Index 23.06 (77.11 kg, 182.88 cm) cm10 01/11 20:08 Pain Scale: Adult cm10 MDM: 01/11 19:48 Patient medically screened. rn 01/12 00:32 Differential diagnosis: cellulitis. Differential diagnosis: Peripheral vascular rn disease, peripheral arterial disease, lymphedema. Data reviewed: vital signs, nurses notes. Care significantly affected by the following chronic conditions: Chronic Obstructive Pulmonary Disease. Counseling: I had a detailed discussion with the patient and/or guardian regarding the historical points, exam findings, and any diagnostic results supporting the discharge/admit diagnosis, lab results, the need for outpatient follow up, to return to the emergency department if symptoms worsen or persist or if there are any questions or concerns that arise at home. Special discussion: I discussed with the patient/guardian in detail that at this point there is no indication for admission to the hospital. It is understood, however, that if the symptoms persist or worsen the patient needs to return immediately for re-evaluation. ED course: WBC normal, lactic acid normal. Will discharge with double antibiotic coverage for cellulitis of the right lower extremity and given return precautions.. 01/11 20:08 Order name: Blood Culture Adult (2) rn 01/11 20:08 Order name: CBC with Diff rn 01/11 20:08 Order name: CMP; Complete Time: 00:24 rn 01/11 20:08 Order name: Lactate w/ 2H reflex if indic.; Complete Time: 00:24 rn 01/11 20:08 Order name: Protime (+inr); Complete Time: 00:24 rn 01/11 20:08 Order name: Ptt, Activated; Complete Time: 00:24 rn 01/11 23:06 Order name: Glucose, Ancillary Testing; Complete Time: 23:36 EDMS 01/11 20:08 Order name: Lower Extremity Artery Uni Ltd US; Complete Time: 20:56 rn 01/11 20:09 Order name: Extremity Venous Uni Ltd US; Complete Time: 20:56 rn 01/11 20:08 Order name: EKG; Complete Time: 20:09 rn 01/11 20:08 Order name: Accucheck; Complete Time: 23:57 rn 01/11 20:08 Order name: Cardiac monitoring; Complete Time: 23:57 rn 01/11 20:08 Order name: EKG - Nurse/Tech; Complete Time: 00:16 rn 01/11 20:08 Order name: IV Saline Lock - Large Bore; Complete Time: 23:57 rn 01/11 20:08 Order name: Labs collected and sent; Complete Time: 23:57 rn 01/11 20:08 Order name: O2 Per Protocol; Complete Time: 23:57 rn 01/11 20:08 Order name: O2 Sat Monitoring; Complete Time: 23:58 rn 01/11 20:08 Order name: Vital Signs; Complete Time: 23:58 rn 01/12 00:32 Order name: Dressing - Wound; Complete Time: 01:05 rn EC:20 Rate is 64 beats/min. Rhythm is regular. QRS [place] is Normal. [place] interval is normal. QRS rn interval is normal. QT interval is normal. No Q waves. T waves are Normal. Clinical impression: Normal ECG. Interpreted by me. Reviewed by me. Administered Medications: 00:56 Drug: Clindamycin PO 300 mg PO once Route: PO; pc2 01:09 Follow up: Response: No adverse reaction; Medication administered at discharge. pc2 00:56 Drug: Doxycycline PO 100 mg PO once Route: PO; pc2 01:09 Follow up: Response: No adverse reaction; Medication administered at discharge. pc2 00:56 Drug: [place] PO 10 mg-325 mg 1 tabs PO once Route: PO; pc2 01:09 Follow up: Response: No adverse reaction; Medication administered at discharge. pc2 Disposition Summary: 01/13/24 00:33 Discharge Ordered Notes: Location: Home rn Problem: chronic rn Symptoms: are unchanged rn Condition: Stable rn Diagnosis - Cellulitis of right lower limb rn Followup: rn - With: Private Physician - When: As needed - Reason: Recheck today's complaints, Re-evaluation by your physician Discharge Instructions: - Discharge Summary Sheet rn - Cellulitis, Adult rn Forms: - Medication Reconciliation Form rn - Antibiotic perianesthesia rn - Prescription Opioid Use rn - Patient Portal Instructions rn - Leadership Thank You Letter rn Prescriptions: - Clindamycin HCl 300 mg Oral Capsule - take 1 capsule ORAL route every 6 hours for 10 days; 40 capsule; Refills: 0, rn Product Selection Permitted - Tramadol 50 mg Oral Tablet - take 1 tablet ORAL route every 8 hours as needed; 12 tablet; Refills: 0, rn Product Selection Permitted - Doxycycline Monohydrate 100 mg Oral Tablet - take 1 tablet ORAL route every 12 hours for 10 days; 20 tablet; Refills: 0, rn Product Selection Permitted Signatures: Dispatcher [employer] EDMS Juan Manuel Givens MD MD rn Jhony, Janina RN RN cm10 Paulina Aguila, RN RN pc2 Corrections: (The following items were deleted from the chart) 01/11 20:09 20:09 BLOOD CULTURE*+BA.LAB.BRZ ordered. EDMS EDMS 20:09 20:09 CBC+H.LAB.BRZ ordered. EDMS EDMS 20:09 20:09 COMPREHENSIVE METABOLIC PANEL+C.LAB.BRZ ordered. EDMS EDMS 20:09 20:09 LACTATE+C.LAB.BRZ ordered. EDMS EDMS 20:09 20:09 PROTIME (+INR)+COAG.LAB.BRZ ordered. EDMS EDMS 20:09 20:09 PTT, ACTIVATED+COAG.LAB.BRZ ordered. EDMS EDMS
--- NOTE | 2024-01-13 00:34 | ER ---
Nurse's Notes [facility] Name: Won Vera Age: 53 yrs Sex: Male : 1970 Arrival Date: 01/12/2024 Time: 19:40 Bed 17 Private MD: Diagnosis: Cellulitis of right lower limb Presentation: 01/11 20:05 Chief complaint: Patient states: Wound to right lower leg. Pt states that this cm10 developed "a while ago". Pt noted to have wound to right lower leg and has been having foul drainage. Coronavirus screen: Client denies travel out of the [place] in the last 14 days. At this time, the client does not indicate any symptoms associated with coronavirus-19. Ebola Screen: Patient denies travel to an Ebola-affected area in the 21 days before illness onset. No symptoms or risks identified at this time. Initial Sepsis Screen: Does the patient meet any 2 criteria? No. Patient's initial sepsis screen is negative. Does the patient have a suspected source of infection? No. Patient's initial sepsis screen is negative. Risk Assessment: Do you want to hurt yourself or someone else? Patient reports no desire to harm self or others. Onset of symptoms was January 12, 2024. 20:05 Method Of Arrival: Ambulatory cm10 20:05 Acuity: DELANEY 3 cm10 Triage Assessment: 20:07 General: Appears in no apparent distress. comfortable, Behavior is calm, cooperative. cm10 Neuro: No deficits noted. Level of Consciousness is awake, alert, obeys commands, Oriented to person, place, time, situation, Appropriate for age. Respiratory: No deficits noted. Airway is patent Respiratory effort is even, unlabored, Respiratory pattern is regular, symmetrical. Historical: - Allergies: 20:06 No Known Allergies; cm10 - PMHx: 20:06 Anemia; Asthma; RLS; COPD; cm10 - Immunization history:: Adult Immunizations up to date. - Infectious Disease History:: Denies. - Social history:: Smoking status: Patient/guardian denies using tobacco, Stopped _ months ago 6. - Family history:: not pertinent. - Hospitalizations: : No recent hospitalization is reported. Screenin:00 [facility] ED Fall Risk Assessment (Adult) History of falling in the last 3 months, pc2 including since admission No falls in past 3 months (0 pts) Confusion or Disorientation No (0 pts) Intoxicated or Sedated No (0 pts) Impaired Gait No (0 pts) Mobility Assist Device Used No (0 pt) Altered Elimination No (0 pt) Score/Fall Risk Level 0 - 2 = Low Risk Oriented to surroundings, Maintained a safe environment. Abuse screen: Denies threats or abuse. Denies injuries from another. Nutritional screening: No deficits noted. Tuberculosis screening: No symptoms or risk factors identified. Assessment: 23:10 General: Appears in no apparent distress. comfortable, slender, Behavior is calm, pc2 cooperative, appropriate for age. Pain: Complains of pain in right leg. Neuro: No deficits noted. Level of Consciousness is awake, alert, obeys commands, Oriented to person, place, time, situation. Cardiovascular: Patient's skin is warm and dry. Respiratory: Airway is patent Respiratory effort is even, unlabored, Respiratory pattern is regular, symmetrical. GI: No signs and/or symptoms were reported involving the gastrointestinal system. : No signs and/or symptoms were reported regarding the genitourinary system. EENT: No signs and/or symptoms were reported regarding the EENT system. Derm: Skin is dry, Skin is pink, warm \\T\\ dry. Wound noted right leg. Musculoskeletal: Range of motion: intact in all extremities. 01/12 00:00 Reassessment: Patient and/or family updated on plan of care and expected duration. Pain pc2 level reassessed. Patient is alert, oriented x 3, equal unlabored respirations, skin warm/dry/pink. Vital Signs: 01/11 20:08 BP 169 / 88; Pulse 77; Resp 16; Temp 97.8(O); Pulse Ox 100% on R/A; Weight 77.11 kg; cm10 Height 6 ft. 0 in. ; Pain 9/10; 23:30 BP 144 / 92; Pulse 58; Resp 16; Pulse Ox 100% ; pc2 01/12 00:30 BP 156 / 94; Pulse 73; Resp 18; Pulse Ox 100% on R/A; pc2 01/11 20:08 Body Mass Index 23.06 (77.11 kg, 182.88 cm) cm10 01/11 20:08 Pain Scale: Adult cm10 ED Course: 01/11 19:42 Patient arrived in ED. im 19:48 Juan Manuel Givens MD is Attending Physician. rn 20:06 Triage completed. cm10 20:07 Arm band placed on Patient placed in waiting room. cm10 20:31 Lower Extremity Artery Uni Ltd US In Process Unspecified. EDMS 20:32 Extremity Venous Uni Ltd US In Process Unspecified. EDMS 22:50 Patient has correct armband on for positive identification. pc2 22:51 Paulina Aguila, RN is Primary Nurse. pc2 23:45 Inserted saline lock: 20 gauge in right antecubital area, using aseptic technique. pc2 Blood collected. Flushed with 10 mL NS. 23:58 Blood Culture Adult (2) Sent. pc2 23:58 CBC with Diff Sent. pc2 23:58 CMP Sent. pc2 23:58 Lactate w/ 2H reflex if indic. Sent. pc2 23:58 Protime (+inr) Sent. pc2 23:58 Ptt, Activated Sent. pc2 08 00:16 EKG done, by ED staff. af3 01:00 IV discontinued, intact, bleeding controlled, No redness/swelling at site. Pressure pc2 dressing applied. 01:06 No provider procedures requiring assistance completed. pc2 01:08 Provided Education on: Wound care, medications, and follow up. pc2 Administered Medications: 00:56 Drug: Clindamycin PO 300 mg PO once Route: PO; pc2 01:09 Follow up: Response: No adverse reaction; Medication administered at discharge. pc2 00:56 Drug: Doxycycline PO 100 mg PO once Route: PO; pc2 01:09 Follow up: Response: No adverse reaction; Medication administered at discharge. pc2 00:56 Drug: [place] PO 10 mg-325 mg 1 tabs PO once Route: PO; pc2 01:09 Follow up: Response: No adverse reaction; Medication administered at discharge. pc2 Medication: 01:07 VIS not applicable for this client. pc2 Outcome: 00:33 Discharge ordered by . rn 01:07 Discharged to home ambulatory, pc2 01:07 Condition: stable 01:07 Discharge instructions given to patient, Instructed on discharge instructions, follow up and referral plans. medication usage, Demonstrated understanding of instructions, follow-up care, medications, Prescriptions given X 3, 01:10 Patient left the ED. pc2 Signatures: Dispatcher [employer] EDMS Juan Manuel Givens MD MD rn Mendoza, Itzel im Martinez, Clarissa, RN RN 10 Paulian Aguila, RN RN pc2 Kim Gonsalez af3
[2024-01-13] MEDS ORDERED: DOXYCYCLINE 100 MG CAP PO ONE (00:50)
[2024-01-13] MEDS ORDERED: HYDROCODONE/APAP 10/325 TAB ONE (00:51)
[2024-01-13 01:14] VITALS: TEMP 97.8; O2SAT 100
[2024-01-13 01:17] VITALS: BP 156/94
[2024-01-13 04:09] LABS: Anisocytosis 1+; Blood Morphology Comment NOTED (NOT SEEN); Hypochromasia 1+; Microcytosis 1+; Ovalocytes 2+; Platelet Estimate ADEQ; Poikilocytosis 3+; Polychromasia 1+; Teardrop Cell 1+; White Blood Cell Scan 0 (OK)
--- OUTSIDE RECORDS SUMMARY | 2024-01-14 13:18 | XMS REPORT | Continuity of Care Document ---
Author Name Unknown Address [address] [facility] [address] [place] [address] [facility] Address [address] [facility] 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 Ordering Clinician Indication Dosage Frequency Signature (SIG) Comments Components Source albuterol sulfate HFA 90 mcg/actuati on aerosol inhaler 11-07 00:00: 00 Yes 12mcg/a ctuatio n Alan Gu Wixela Inhub 250 mcg-50 mcg/dose powder for inhalation 11-07 00:00: 00 Yes 1mcg/do se Alan Gu ibuprofen 800 mg tablet 11-07 00:00: 00 Yes 1mg Alan Gu cephalexin 500 mg tablet 11-07 00:00: 00 Yes 1mg Alan Gu albuterol sulfate HFA 90 mcg/actuati on aerosol inhaler 10-16 00:00: 00 Yes mcg/act uation Alan Gu Wixela Inhub 250 mcg-50 mcg/dose powder for inhalation 10-16 00:00: 00 Yes 1mcg/do se Alan Gu albuterol sulfate HFA 90 mcg/actuati on aerosol inhaler 09-18 00:00: 00 Yes mcg/act uation Alan Gu Wixela Inhub 250 mcg-50 mcg/dose powder for inhalation 09-18 00:00: 00 Yes 1mcg/do se Alan Gu montelukast 10 mg tablet 09-18 00:00: 00 Yes 1mg Alan Gu gabapentin 300 mg capsule 09-18 00:00: 00 Yes 1mg Alan Gu ADVAIR DISKU 250/50 INH 09-18 00:00: 00 Yes Alan Gu albuterol sulfate HFA 90 mcg/actuati on aerosol inhaler 07-28 00:00: 00 Yes mcg/act uation Alan Gu Wixela Inhub 250 mcg-50 mcg/dose powder for inhalation 07-28 00:00: 00 Yes mcg/dos e Alan Gu TAKE 1 TABLET BY MOUTH TWICE DAILY 07-28 00:00: 00 Yes Alan Gu TAKE 1 TABLET BY MOUTH DAILY 07-28 00:00: 00 Yes Alan Gu Immunizations Ordered Immunization Name Filled Immunization Name Date Status Comments Source Tdap Tdap 2023-09-19 00:00:00 Completed Alan Leon Riccardo Prevnar 20 Prevnar 20 2023-09-19 00:00:00 Completed Alan Gu Tdap Tdap 2023-09-19 00:00:00 Completed Alan Leon Riccardo Prevnar 20 Prevnar 20 2023-09-19 00:00:00 Completed Alan Gu Vital Signs Vital Name Observation Time Observation Value Comments S ourricardo BP Systolic 2023-11-08 10:28:00 151 mm[Hg] Alex Gu BP Diastolic 2023-11-08 10:28:00 84 mm[Hg] Cem phen Carolyn Gu Weight Measured 2023-11-08 10:28:00 160.20 pounds Alan Gu Height Measured 2023-11-08 10:28:00 71.00 inches Alan Gu Body Temperature 2023-11-08 10:28:00 98.20 degrees Alan Gu Heart Rate 2023-11-08 10:28:00 88.00 /min Liz en F Riccardo Respiratory Rate 2023-11-08 10:28:00 17.00 /min Alan Gu BP Systolic 2023-10-17 09:28:00 Alex Gu BP Diastolic 2023-10-17 09:28:00 Cem phen Carolyn Gu Weight Measured 2023-10-17 09:28:00 Alan Gu Height Measured 2023-10-17 09:28:00 71.00 inches Alan Gu Body Temperature 2023-10-17 09:28:00 98.20 degrees Alan F Riccardo Heart Rate 2023-10-17 09:28:00 Liz en F Riccardo Respiratory Rate 2023-10-17 09:28:00 16.00 /min Alan F Riccardo BP Systolic 2023-10-17 09:12:00 131 mm[Hg] Step hen F Riccardo BP Diastolic 2023-10-17 09:12:00 70 mm[Hg] Cem phen F Riccardo Weight Measured 2023-10-17 09:12:00 165.00 pounds Alan F Riccardo Height Measured 2023-10-17 09:12:00 71.00 inches Alan F Riccardo Body Temperature 2023-10-17 09:12:00 97.60 degrees Alan F Riccardo Heart Rate 2023-10-17 09:12:00 54.00 /min Liz en F Riccardo Respiratory Rate 2023-10-17 09:12:00 Alan F Riccardo Respiratory Rate 2023-09-19 09:43:00 Alan F Riccardo BP Systolic 2023-09-19 09:43:00 135 mm[Hg] Step hen F Riccardo BP Diastolic 2023-09-19 09:43:00 84 mm[Hg] Cem phen F Riccardo Weight Measured 2023-09-19 09:43:00 171.60 pounds Alan F Riccardo Height Measured 2023-09-19 09:43:00 71.00 inches Alan F Riccardo Body Temperature 2023-09-19 09:43:00 98.00 degrees Alan F Riccardo Heart Rate 2023-09-19 09:43:00 64.00 /min Liz en F Riccardo Encounters Start Date/Time End Date/Time Encounter Type Admission Type Attending [facility] Care Department Encounter ID Source 2023-11-08 10:32:23 2023-11-08 10:32:23 Outpatient SFA SFA [id number] Alan Gu 2023-11-08 00:00:00 2023-11-08 00:00:00 Outpatient Visit SFA [id number] Alan Gu 2023-10-24 11:05:41 2023-10-24 11:05:41 Outpatient SFA [id number] [id number] Alan Gu 2023-10-17 09:12:12 2023-10-17 09:12:12 Outpatient SFA [facility] [id number] Alan Gu 2023-10-17 00:00:00 2023-10-17 00:00:00 Outpatient Visit [facility] [id number] Alan uG 2023-09-19 09:38:15 2023-09-19 09:38:15 Outpatient SFA [facility] [id number] Alan Gu 2023-09-19 00:00:00 2023-09-19 00:00:00 Outpatient Visit [facility] [id number] Alan Gu Results Test Description Test Time Test Comments Results Result Co mments Source HEMOGLOBIN [id number] 00:00:00* Test Item Value Reference Range Interpretation Comme [facility] HEMOGLOBIN A1c (test code = 95868) 5.8 % Alan GuHEMOGLOBIN [id number] 00:00:00* Test Item Value Reference Range Interpretation Comme nts HEMOGLOBIN A1c (test code = 02533) 5.8 % Alan GuCBC W/AUTO DIFF WITH [id number] 11:43:32* Test Item Value Reference Range Interpretation Comme nts WBC (test code = 1001) 8.5 K/UL 3.5-11.0 RBC (test code = 1002) 4.38 M/UL 4.50-6.10 L HEMOGLOBIN (test code = 1003) 9.9 G/DL 13.5-17.0 L HEMATOCRIT (test code = 1004) 33.4 % 40.0-51.0 L MCV (test code = 1005) 76.3 fL 80.0-99.0 L MCH (test code = 1006) 22.6 PG 25.0-33.0 L MCHC (test code = 1007) 29.6 G/DL 31.0-36.0 L RDW (test code = 1038) 15.3 % 11.5-15.0 H NEUTROPHILS (test code = 1008) 76.3 % LYMPHOCYTES (test code = 1010) 14.0 % MONOCYTES (test code = 1011) 5.9 % EOSINOPHILS (test code = 1012) 2.8 % BASOPHILS (test code = 1013) 0.6 % IMMATURE GRANULOCYTES (test code = 1036) 0.4 % NUCLEATED RBCS (test code = 1065) 0.0 /100 WBC'S See_Comment [Automated [employer] ge] The system which generated this result transmitted reference range: 0.0. The reference range was not used to interpret this result as normal/abnormal. PLATELET COUNT (test code = 1015) 377 K/UL 130-400 ABSOLUTE NEUTROPHILS (test code = 1066) 6.50 K/UL 1.50-7.50 ABSOLUTE LYMPHOCYTES (test code = 1067) 1.19 K/UL 1.00-4.00 ABSOLUTE MONOCYTES (test code = 1068) 0.50 K/UL 0.20-1.00 ABSOLUTE EOSINOPHILS (test code = 1040) 0.24 K/UL 0.00-0.50 ABSOLUTE BASOPHILS (test code = 1069) 0.05 K/UL 0.00-0.20 ABS IMMATURE GRANULOCYTES (test code = 1020) 0.03 K/UL 0.00-0.10 ABS NUCLEATED RBCS (test code = 37986) 0.00 K/UL 0.00-0.11 LIPID [id number] 04:06:25* Test Item Value Reference Range Interpretation Comme nts CHOLESTEROL (test code = 2210) 158 MG/DL <200 TRIGLYCERIDES (test code = 2232) 61 MG/DL <150 HDL CHOLESTEROL (test code = 2220) 56 MG/DL >39 CALC LDL CHOL (test code = 2237) 87 MG/DL <100 NOTE: CALCULATED LDL IS BASED ON KENYETTA-VELASCO METHOD WHICHINCLUDES ADJUSTABLE TRIGLYCERIDE:VLDL CHOLESTEROL RATIO.THIS FACTOR VARIES BY MEASURED TRIGLYCERIDE AND NON-HDLCHOLESTEROL CONCENTRATIONS WITH INCREASED CALCULATED LDL SEENIN HIGHER TRIGLYCERIDE OR LOWER NON-HDL SPECIMENS. FOR MOREINFORMATION, SEE CLIENT ANNOUNCEMENT AT [email or web address] RISK RATIO LDL/HDL (test code = 2238) 1.55 RATIO <3.55 COMPREHENSIVE METABOLIC [id number] 04:06:25* Test Item Value Reference Range Interpretation Comme nts GLUCOSE (test code = 2217) 92 MG/DL 70-99 BUN (test code = 2208) 21 MG/DL 6-20 H CREATININE (test code = 2214) 1.16 MG/DL 0.80-1.40 eGFR (2020 CKD-EPI) (test co de = 27798) 76 ML/MIN/1.73 >60 CALC BUN/CREAT (test code = 2235) 18 RATIO 6-28 SODIUM (test code = 223) 143 MEQ/L 133-146 POTASSIUM (test code = 2228) 4.5 MEQ/L 3.5-5.4 CHLORIDE (test code = 2215) 105 MEQ/L 95-107 CARBON DIOXIDE (test code = 2206) 21 MEQ/L 19-31 CALCIUM (test code = 220) 9.4 MG/DL 8.5-10.5 PROTEIN, TOTAL (test code = 222) 6.9 G/DL 6.1-8.3 ALBUMIN (test code = 2200) 4.5 G/DL 3.5-5.2 CALC GLOBULIN (test code = 2240) 2.4 G/DL 1.9-3.7 CALC A/G RATIO (test code = 2234) 1.9 RATIO 1.0-2.6 BILIRUBIN, TOTAL (test code = 7) 0.3 MG/DL <=1.2 ALKALINE PHOSPHATASE (test code = 2204) 96 U/L 40-121 AST (test code = 2218) 18 U/L 9-50 ALT (test code = 2219) 19 U/L 5-50 HIV 1/2 4TH GEN, RFLX [id number] 03:44:28* Test Item Value Reference Range Interpretation Comme nts HIV 1/2 4TH GEN, RFLX CONF ( test code = 3514) NON-REACTIVE NON-REACTIVE HEPATITIS PANEL, [id number] 03:44:28* Test Item Value Reference Range Interpretation Comme nts HEPATITIS A TOTAL AB (test code = 2725) NON-REACTIVE NON-REACTIVE HEPATITIS B SURF AG (test code = 2739) NON-REACTIVE NON-REACTIVE HEP B CORE TOTAL AB (test code = 2729) NON-REACTIVE NON-REACTIVE HEPATITIS B SURFACE AB (test code = 2737) NON-REACTIVE NON-REACTIVE HEPATITIS C ANTIBODY (test code = 4675) NON-REACTIVE NON-REACTIVE INTERPRETATION HEPATITIS A: (test code = 2552) (NOTE) Hepatitis A sero logy shows no evidence of past exposure to orcurrent infection with hepatitis A virus; patient not immune tohepatitis A. INTERPRETATION HEPATITIS B: (test code = 76748) (NOTE) Hepatitis B sero logy shows no evidence of past exposure to orcurrent infection with hepatitis B virus. No evidence of hepatitis Bimmunization is identified. INTERPRETATION HEPATITIS C: (test code = 25990) (NOTE) Hepatitis C sero logy shows no evidence of exposure to hepatitisC virus at this time. It can take up to 12 months after exposure tothe hepatitis C virus for antibodies to become detectable in the blood in certain patients. UNLESS OTHERWISE INDICATED, ALL TESTING PERFORMED AT [facility] [address] [place] [id number] FACE PAINTER: KATHY BOWERS M.D. CLIA NUMBER [id number] [facility] [place]. [id number] CBC W/AUTO [id number] 00:00:00* Test Item Value Reference Range Interpretation Comme nts WBC (test code = 1001) 8.5 K/UL RBC (test code = 1002) 4.38 M/UL HEMOGLOBIN (test code = 1003) 9.9 G/DL HEMATOCRIT (test code = 1004) 33.4 % MCV (test code = 1005) 76.3 fL MCH (test code = 1006) 22.6 PG MCHC (test code = 1007) 29.6 G/DL RDW (test code = 1038) 15.3 % NEUTROPHILS (test code = 1008) 76.3 % LYMPHOCYTES (test code = 1010) 14.0 % MONOCYTES (test code = 1011) 5.9 % EOSINOPHILS (test code = 1012) 2.8 % BASOPHILS (test code = 1013) 0.6 % IMMATURE GRANULOCYTES (test code = 1036) 0.4 % NUCLEATED RBCS (test code = 1065) 0.0 /100WBC'S PLATELET COUNT (test code = 1015) 377 K/UL ABSOLUTE NEUTROPHILS (test c ode = 1066) 6.50 K/UL ABSOLUTE LYMPHOCYTES (test c ode = 1067) 1.19 K/UL ABSOLUTE MONOCYTES (test cod e = 1068) 0.50 K/UL ABSOLUTE EOSINOPHILS (test c ode = 1040) 0.24 K/UL ABSOLUTE BASOPHILS (test cod e = 1069) 0.05 K/UL ABS IMMATURE GRANULOCYTES (t est code = 1020) 0.03 K/UL ABS NUCLEATED RBCS (test cod e = 44267) 0.00 K/UL Alan GuLIPID [id number] 00:00:00* Test Item Value Reference Range Interpretation Comme nts CHOLESTEROL (test code = 2210) 158 MG/DL TRIGLYCERIDES (test code = 2232) 61 MG/DL HDL CHOLESTEROL (test code = 2220) 56 MG/DL CALC LDL CHOL (test code = 2237) 87 MG/DL RISK RATIO LDL/HDL (test cod e = 2238) 1.55 RATIO Alan GuCOMPREHENSIVE METABOLIC [id number] 00:00:00* Test Item Value Reference Range Interpretation Comme nts GLUCOSE (test code = 2217) 92 MG/DL BUN (test code = 2208) 21 MG/DL CREATININE (test code = 2214) 1.16 MG/DL eGFR (2020 CKD-EPI) (test co de = 40161) 76 ML/MIN/1.73 CALC BUN/CREAT (test code = 2235) 18 RATIO SODIUM (test code = 2231) 143 MEQ/L POTASSIUM (test code = 2228) 4.5 MEQ/L CHLORIDE (test code = 2215) 105 MEQ/L CARBON DIOXIDE (test code = 2206) 21 MEQ/L CALCIUM (test code = 2209) 9.4 MG/DL PROTEIN, TOTAL (test code = 2229) 6.9 G/DL ALBUMIN (test code = 2201) 4.5 G/DL CALC GLOBULIN (test code = 2240) 2.4 G/DL CALC A/G RATIO (test code = 2234) 1.9 RATIO BILIRUBIN, TOTAL (test code = 2207) 0.3 MG/DL ALKALINE PHOSPHATASE (test code = 2204) 96 U/L AST (test code = 2218) 18 U/L ALT (test code = 2219) 19 U/L Alan GuHIV 1/2 4TH GEN, RFLX [id number] 00:00:00* Test Item Value Reference Range Interpretation Comme nts HIV 1/2 4TH GEN, RFLX CONF ( test code = 3514) NON-REACTIVE Alan GuHEPATITIS PROFILE (A,B,C)2023-09-20 00:00:00* Test Item Value Reference Range Interpretation Comme nts HEPATITIS A TOTAL AB (test c ode = 2725) NON-REACTIVE HEPATITIS B SURF AG (test co de = 2739) NON-REACTIVE HEP B CORE TOTAL AB (test co de = 2729) NON-REACTIVE HEPATITIS B SURFACE AB (test code = 2737) NON-REACTIVE HEPATITIS C ANTIBODY (test c ode = 2669) NON-REACTIVE INTERPRETATION HEPATITIS A: (test code = 2552) (NOTE) INTERPRETATION HEPATITIS B: (test code = 58573) (NOTE) INTERPRETATION HEPATITIS C: (test code = 04869) (NOTE) Alan Leon RiccardoCBC W/AUTO [id number] 00:00:00* Test Item Value Reference Range Interpretation Comme nts WBC (test code = 1001) 8.5 K/UL RBC (test code = 1002) 4.38 M/UL HEMOGLOBIN (test code = 1003) 9.9 G/DL HEMATOCRIT (test code = 1004) 33.4 % MCV (test code = 1005) 76.3 fL MCH (test code = 1006) 22.6 PG MCHC (test code = 1007) 29.6 G/DL RDW (test code = 1038) 15.3 % NEUTROPHILS (test code = 1008) 76.3 % LYMPHOCYTES (test code = 1010) 14.0 % MONOCYTES (test code = 1011) 5.9 % EOSINOPHILS (test code = 1012) 2.8 % BASOPHILS (test code = 1013) 0.6 % IMMATURE GRANULOCYTES (test code = 1036) 0.4 % NUCLEATED RBCS (test code = 1065) 0.0 /100WBC'S PLATELET COUNT (test code = 1015) 377 K/UL ABSOLUTE NEUTROPHILS (test c ode = 1066) 6.50 K/UL ABSOLUTE LYMPHOCYTES (test c ode = 1067) 1.19 K/UL ABSOLUTE MONOCYTES (test cod e = 1068) 0.50 K/UL ABSOLUTE EOSINOPHILS (test c ode = 1040) 0.24 K/UL ABSOLUTE BASOPHILS (test cod e = 1069) 0.05 K/UL ABS IMMATURE GRANULOCYTES (t est code = 1020) 0.03 K/UL ABS NUCLEATED RBCS (test cod e = 10210) 0.00 K/UL Alan GuLIPID [id number] 00:00:00* Test Item Value Reference Range Interpretation Comme nts CHOLESTEROL (test code = 2210) 158 MG/DL TRIGLYCERIDES (test code = 2232) 61 MG/DL HDL CHOLESTEROL (test code = 2220) 56 MG/DL CALC LDL CHOL (test code = 2237) 87 MG/DL RISK RATIO LDL/HDL (test cod e = 2238) 1.55 RATIO Alan GuCOMPREHENSIVE METABOLIC [id number] 00:00:00* Test Item Value Reference Range Interpretation Comme nts GLUCOSE (test code = 2217) 92 MG/DL BUN (test code = 2208) 21 MG/DL CREATININE (test code = 2214) 1.16 MG/DL eGFR (2020 CKD-EPI) (test co de = 98723) 76 ML/MIN/1.73 CALC BUN/CREAT (test code = 2235) 18 RATIO SODIUM (test code = 2231) 143 MEQ/L POTASSIUM (test code = 2228) 4.5 MEQ/L CHLORIDE (test code = 2215) 105 MEQ/L CARBON DIOXIDE (test code = 2206) 21 MEQ/L CALCIUM (test code = 2209) 9.4 MG/DL PROTEIN, TOTAL (test code = 2229) 6.9 G/DL ALBUMIN (test code = 2201) 4.5 G/DL CALC GLOBULIN (test code = 2240) 2.4 G/DL CALC A/G RATIO (test code = 2234) 1.9 RATIO BILIRUBIN, TOTAL (test code = 2207) 0.3 MG/DL ALKALINE PHOSPHATASE (test code = 2204) 96 U/L AST (test code = 2218) 18 U/L ALT (test code = 2219) 19 U/L Alan GuHIV 1/2 4TH GEN, RFLX [id number] 00:00:00* Test Item Value Reference Range Interpretation Comme nts HIV 1/2 4TH GEN, RFLX CONF ( test code = 3514) NON-REACTIVE Alan GuHEPATITIS PROFILE (A,B,C)2023-09-20 00:00:00* Test Item Value Reference Range Interpretation Comme nts HEPATITIS A TOTAL AB (test c ode = 2725) NON-REACTIVE HEPATITIS B SURF AG (test co de = 2739) NON-REACTIVE HEP B CORE TOTAL AB (test co de = 2729) NON-REACTIVE HEPATITIS B SURFACE AB (test code = 2737) NON-REACTIVE HEPATITIS C ANTIBODY (test c ode = 4675) NON-REACTIVE INTERPRETATION HEPATITIS A: (test code = 2552) (NOTE) INTERPRETATION HEPATITIS B: (test code = 69045) (NOTE) INTERPRETATION HEPATITIS C: (test code = 75044) (NOTE) Alan Carolyn Riccardo Notes Date/Time Note Provider Source Alan CarolynArthur Riccardo [facility]2024-05-23 00:00:00 Plan Activity continue eating a balanced diet and exer cise 2023-09-19 Labs: CBC ,CMP , HgBA1C , Li pids , hepatitis panel , HIV Recommend yearly flu and Tdap every 10 years RTO pending results Advised continue with dental cleanings every 6 months and and yearly eye exams 2023-09-19 Refilled WIxela and albutero l inhaler pt already has enough Montelukast taken 10 mg nightly no other issues noted 2023-09-19 Tdap, PCV20 2023-09-19 vascular referral 2023-09-19 RX Gabapenitn 300 mg nightly RTO in 2 weeks 2023-09-19 Vascular referral 2023-09-19 fit card given 2023-09-19 [facility]2024-04-25 00:00:00 Plan Activity continue eating a balanced diet and exer cise 2023-09-19 Labs: CBC ,CMP , HgBA1C , Li pids , hepatitis panel , HIV Recommend yearly flu and Tdap every 10 years RTO pending results Advised continue with dental cleanings every 6 months and and yearly eye exams 2023-09-19 Refilled WIxela and albutero l inhaler RX Montelukast 10 mg nightly 2023-09-19 Tdap, PCV20 2023-09-19 vascular referral 2023-09-19 RX Gabapenitn 300 mg nightly RTO in 2 weeks 2023-09-19 Vascular referral 2023-09-19 fit card given 2023-09-19 [facility]
--- NOTE | 2024-01-14 17:49 | EKG ---
Test Date: 2024-01-13 Test Time: 00:15:11 Conduit Worker: MERCEDES MEASUREMENT RESULTS: Intervals: Rate: 64 TN: 174 QRSD: 96 QT: 438 QTc: 451 Gould: P: 2 TN: 174 QRS: 53 T: 58 INTERPRETIVE STATEMENTS: Normal sinus rhythm Normal ECG Compared to ECG 07/27/2023 12:34:18 Left-axis deviation no longer present Electronically Signed On 01-14-24 17:46:12 CDT by Tre Healy
== END 2024-01-13 01:10 | disposition home or self-care (01) ==
LOC: ER 19:40
DX: L03.115 Cellulitis of right lower limb (principal)
CPT/HCPCS: 36415; 80053; 82947; 83605; 85025; 85610; 85730; 87040; 93005; 93926; 93971

== ENCOUNTER 2024-07-22 21:35 | Emergency (ER) | payer OTHER ==
--- OUTSIDE RECORDS SUMMARY | 2024-07-22 21:38 | XMS REPORT | Continuity of Care Document ---
Author Name Unknown Address [address] [place] [address] [facility] thconnect Address [address] [place] [address] Care Team Providers Care Flight Simulator Teacher Name Role Phone Seymour BRIDGETTE, Gayle Primary Care Physician CHICHO VENTURA Attending Clinician MELLY Martínez Attending Clinician Jessie barnett Payers Payer Name Policy Type Policy Number Effective Date Expirati on Date Source [facility] ISABELL ROSALESDione COPAY FOCUS 9 [id number] 2024 00:00:00 Medications Ordered Medication Name Filled Medication Name [...] 07-28 00:00: 00 Yes mcg/dos e Alan Carolyn Gu TAKE 1 TABLET BY MOUTH TWICE DAILY 07-28 00:00: 00 Yes Alan Carolyn Gu TAKE 1 TABLET BY MOUTH DAILY 07-28 00:00: 00 Yes Alan Carolyn Gu Immunizations Ordered Immunization Name Filled Immunization Name Date Status Comments Source Tdap Tdap 2023-09-19 00:00:00 Completed Alan Gu Prevnar 20 Prevnar 20 2023-09-19 00:00:00 Completed Alan Gu Tdap Tdap 2023-09-19 00:00:00 Completed Alan Gu Prevnar 20 Prevnar 20 2023-09-19 00:00:00 Completed Alan Gu Vital Signs Vital Name Observation Time Observation Value Comments S carolyn BP Systolic 2023-11-08 10:28:00 151 mm[Hg] Alex janis Carolyn Gu BP Diastolic 2023-11-08 10:28:00 84 mm[Hg] Cem inocente Carolyn Gu Weight Measured 2023-11-08 10:28:00 160.20 pounds Alan Gu Height Measured 2023-11-08 10:28:00 71.00 inches Alan Carolyn Riccardo Body Temperature 2023-11-08 10:28:00 98.20 degrees Alan Carolyn Riccardo Heart Rate 2023-11-08 10:28:00 88.00 /min Liz en F Riccardo Respiratory Rate 2023-11-08 10:28:00 17.00 /min Alan F Riccardo BP Systolic 2023-10-17 09:28:00 Step hen F Riccardo BP Diastolic 2023-10-17 09:28:00 Cem phen F Riccardo Weight Measured 2023-10-17 09:28:00 Alan F Riccardo Height Measured 2023-10-17 09:28:00 71.00 inches Alan F Riccardo Body Temperature 2023-10-17 09:28:00 98.20 degrees Alan [...] End Date/Time Encounter Type Admission Type Attending [facility] Care Department Encounter ID Source 2024-04-17 14:00:00 2024-04-17 14:00:00 Outpatient CHICHO VENTURA REINA [id number] Reina [facility] 2024-03-24 11:00:00 2024-03-24 11:00:00 Outpatient MELLY WHITING REINA [id number] [facility] 2023-11-08 10:32:23 2023-11-08 10:32:23 Outpatient SFA SFA [id number] Alan Gu 2023-11-08 00:00:00 2023-11-08 00:00:00 Outpatient Visit SFA [id number] Alan Gu 2023-10-24 11:05:41 2023-10-24 11:05:41 Outpatient SFA SFA [id number] Alan Gu 2023-10-17 09:12:12 2023-10-17 09:12:12 Outpatient SFA SFA [id number] Alan Gu 2023-10-17 00:00:00 2023-10-17 00:00:00 Outpatient Visit SFA [id number] Alan Gu 2023-09-19 09:38:15 2023-09-19 09:38:15 Outpatient SFA SFA [id number] Alan Gu 2023-09-19 00:00:00 2023-09-19 00:00:00 Outpatient Visit SFA [id number] Alan Gu Results Test Description Test Time Test Comments Results Result Co mments Source HEMOGLOBIN [id number] 00:00:00* Test Item Value Reference Range Interpretation Comme nts HEMOGLOBIN A1c (test code = 35878) 5.8 % Alan Leon AustinHEMOGLOBIN [id number] 00:00:00* Test Item Value Reference Range Interpretation Comme nts HEMOGLOBIN A1c (test code = 15564) 5.8 % Alan Leon RiccardoCBC W/AUTO DIFF WITH [id number] 11:43:32* Test Item Value Reference Range Interpretation [...] = 1065) 0.0 /100 WBC'S See_Comment [Automated messa ge] The system which generated this result [...] 0.00-0.10 ABS NUCLEATED RBCS (test code = 04455) 0.00 K/UL 0.00-0.11 LIPID [id number] 04:06:25* Test Item Value Reference Range Interpretation [...] SPECIMENS. FOR MOREINFORMATION, SEE CLIENT ANNOUNCEMENT AT [email or web address] RISK RATIO LDL/HDL (test code = 223) 1.55 RATIO <3.55 COMPREHENSIVE METABOLIC [id number] 04:06:25* Test Item Value Reference Range Interpretation Comme nts GLUCOSE (test code = 221) 92 MG/DL 70-99 BUN (test code = 2207) 21 MG/DL 6-20 H CREATININE (test code = 221) 1.16 MG/DL 0.80-1.40 eGFR (2020 CKD-EPI) (test co de = 21353) 76 ML/MIN/1.73 >60 CALC BUN/CREAT (test code [...] 6.9 G/DL 6.1-8.3 ALBUMIN (test code = 220) 4.5 G/DL 3.5-5.2 CALC GLOBULIN (test code = 2240) 2.4 G/DL 1.9-3.7 CALC A/G RATIO (test code = 2234) 1.9 RATIO 1.0-2.6 BILIRUBIN, TOTAL (test code = 2206) 0.3 MG/DL <=1.2 ALKALINE PHOSPHATASE (test code = 2203) 96 U/L 40-121 AST (test code = 2218) 18 U/L 9-50 ALT (test code = 2219) 19 U/L 5-50 HIV 1/2 4TH GEN, RFLX [id number] 03:44:28* Test Item Value Reference Range Interpretation Comme nts HIV 1/2 4TH GEN, RFLX CONF ( test code = 3514) NON-REACTIVE NON-REACTIVE HEPATITIS PANEL, [id number] 03:44:28* Test Item Value Reference Range Interpretation [...] A. INTERPRETATION HEPATITIS B: (test code = 10957) (NOTE) Hepatitis B sero logy shows no evidence of past exposure to orcurrent infection with hepatitis B virus. No evidence of hepatitis Bimmunization is identified. INTERPRETATION HEPATITIS C: (test code = 81525) (NOTE) Hepatitis C sero logy shows no evidence of exposure to hepatitisC virus at this time. It can take up to 12 months after exposure tothe hepatitis C virus for antibodies to become detectable in the blood in certain patients. UNLESS OTHERWISE INDICATED, ALL TESTING PERFORMED AT [facility] [address] [place] [address] PICKLE PUMPER: KATHY BOWERS M.D. CLIA NUMBER [id number] [facility] [place]. [id number] CBC W/AUTO [id number] 00:00:00* Test Item Value Reference Range Interpretation [...] ABS NUCLEATED RBCS (test cod e = 27002) 0.00 K/UL Alan GuLIPID [id number] 00:00:00* Test Item Value Reference Range Interpretation Comme nts CHOLESTEROL (test code = 2210) 158 MG/DL TRIGLYCERIDES (test code = 2232) 61 MG/DL HDL CHOLESTEROL (test code = 2220) 56 MG/DL CALC LDL CHOL (test code = 2237) 87 MG/DL RISK RATIO LDL/HDL (test cod e = 2238) 1.55 RATIO Alan Leon RiccardoCOMPREHENSIVE METABOLIC [id number] 00:00:00* Test Item Value Reference Range Interpretation Comme nts GLUCOSE (test code = 2217) 92 MG/DL BUN (test code = 2208) 21 MG/DL CREATININE (test code = 2214) 1.16 MG/DL eGFR (2020 CKD-EPI) (test co de = 13845) 76 ML/MIN/1.73 CALC BUN/CREAT (test code = [...] U/L Alan GuHIV 1/2 4TH GEN, RFLX [id number] 00:00:00* Test Item Value Reference Range Interpretation [...] (NOTE) INTERPRETATION HEPATITIS B: (test code = 84053) (NOTE) INTERPRETATION HEPATITIS C: (test code = 52602) (NOTE) Alan uGCBC W/AUTO [id number] 00:00:00* Test Item Value Reference Range Interpretation [...] ABS NUCLEATED RBCS (test cod e = 92634) 0.00 K/UL Alan GuLIPID [id number] 00:00:00* Test Item Value Reference Range Interpretation Comme nts CHOLESTEROL (test code = 2210) 158 MG/DL TRIGLYCERIDES (test code = 2232) 61 MG/DL HDL CHOLESTEROL (test code = 2220) 56 MG/DL CALC LDL CHOL (test code = 2237) 87 MG/DL RISK RATIO LDL/HDL (test cod e = 2238) 1.55 RATIO Alan GuCOMPREHENSIVE METABOLIC [id number] 00:00:00* Test Item Value Reference Range Interpretation Comme nts GLUCOSE (test code = 2217) 92 MG/DL BUN (test code = 2208) 21 MG/DL CREATININE (test code = 2214) 1.16 MG/DL eGFR (2020 CKD-EPI) (test co de = 13955) 76 ML/MIN/1.73 CALC BUN/CREAT (test code = [...] U/L Alan GuHIV 1/2 4TH GEN, RFLX [id number] 00:00:00* Test Item Value Reference Range Interpretation [...] (NOTE) INTERPRETATION HEPATITIS B: (test code = 85231) (NOTE) INTERPRETATION HEPATITIS C: (test code = 97276) (NOTE) Alan Carolyn Riccardo Notes Date/Time Note Provider Source Alan Barreto [facility]2024-05-23 00:00:00 Alan Barreto [facility]2024-04-25 00:00:00 Alan FArthur [facility]
--- NOTE | 2024-07-22 22:31 | RAD REPORT ---
EXAMINATION: TWO VIEW CHEST XR CLINICAL INDICATION: DYSPNEA TECHNIQUE: 2 views of the chest was performed. COMPARISON: 04/11/2024 FINDINGS: The lungs are well inflated and clear. The heart is normal in size. No displaced fractures evident. IMPRESSION: No acute or significant abnormalities.
[2024-07-22] MEDS ORDERED: predniSONE 20 MG TAB ONE (22:34)
[2024-07-22] MEDS ORDERED: IPRATROPIUM BROM 0.5MG/2.5ML ONE (22:34)
[2024-07-22] MEDS ORDERED: ALBUTEROL 2.5 MG/3 ML NEB SOL ONE (22:34)
--- NOTE | 2024-07-22 22:53 | ER ---
Nurse's Notes [facility] Name: Won Vera Age: 54 yrs Sex: Male : 1970 Arrival Date: 07/22/2024 Time: 21:35 Bed DX1 Private MD: Diagnosis: COPD/ Chronic obstructive pulmonary disease, unspecified Presentation: 07/22 22:01 Chief complaint: Patient states: HAS BEEN OUT OF HIS COPD MEDS X2 WEEKS AND HAVING SOB dd2 AND COUGH. Coronavirus screen: At this time, the client does not indicate any symptoms associated with coronavirus-19. Ebola Screen: No symptoms or risks identified at this time. Initial Sepsis Screen: Does the patient meet any 2 criteria? No. Patient's initial sepsis screen is negative. Does the patient have a suspected source of infection? No. Patient's initial sepsis screen is negative. Risk Assessment: Do you want to hurt yourself or someone else? Patient reports no desire to harm self or others. Onset of symptoms is unknown. 22:01 Method Of Arrival: Ambulatory dd2 22:01 Acuity: DELANEY 3 dd2 Triage Assessment: 22:02 General: Appears in no apparent distress. uncomfortable, Behavior is calm, cooperative, dd2 appropriate for age. Pain: Denies pain. Respiratory: Reports shortness of breath at rest on exertion cough that is non-productive, persistent Airway is patent Respiratory effort is even, unlabored, Respiratory pattern is regular, symmetrical, Breath sounds are clear bilaterally. the patient has mild shortness of breath. Historical: - Allergies: 22:02 No Known Allergies; dd2 - PMHx: 22:02 Anemia; Asthma; COPD; RLS; dd2 - PSHx: 22:02 None; dd2 - Immunization history:: Adult Immunizations up to date. - Infectious Disease History:: Denies. - Social history:: Smoking status: Patient/guardian denies using tobacco, the patient reports quitting approximately 1 years ago. Screenin:15 Abuse screen: Denies threats or abuse. Nutritional screening: No deficits noted. vc1 Tuberculosis screening: No symptoms or risk factors identified. 22:15 [facility] ED Fall Risk Assessment (Adult) History of falling in the last 3 months, vc1 including since admission No falls in past 3 months (0 pts) Confusion or Disorientation No (0 pts) Intoxicated or Sedated No (0 pts) Impaired Gait No (0 pts) Mobility Assist Device Used No (0 pt) Altered Elimination No (0 pt) Score/Fall Risk Level 0 - 2 = Low Risk Oriented to surroundings, Maintained a safe environment, Educated pt \T\ family on fall prevention, incl call for assistance when getting out of bed, Hourly rounding (assess needs \T\ fall precautionary measures) done. Assessment: 22:15 General: see triage assessment. vc1 Vital Signs: 22:01 BP 146 / 98; Pulse 70; Resp 18; Temp 98.1; Pulse Ox 99% on R/A; Weight 74.84 kg; Height dd2 5 ft. 11 in. ; 22:01 Body Mass Index 23.01 (74.84 kg, 180.34 cm) dd2 ED Course: 21:39 Patient arrived in ED. gm2 21:52 Bev Davis FNP-C is [facility]. kb 21:52 Marciano Combs MD is Attending Physician. kb 22:02 Triage completed. dd2 22:02 Arm band placed on right wrist. dd2 22:05 Patient has correct armband on for positive identification. Provided Education on: vc1 prescriptions. 22:29 Chest Pa And Lat (2 Views) XRAY In Process Unspecified. EDMS 23:35 No provider procedures requiring assistance completed. Patient did not have IV access vc1 during this emergency room visit. Administered Medications: 22:44 Drug: Albuterol Inhalation 2.5 mg Inhalation once Route: Inhalation; vc1 22:44 Drug: Ipratropium Inhalation Aerosol 0.5 mg Inhalation once Route: Inhalation; vc1 22:44 Drug: predniSONE PO 40 mg PO once Route: PO; vc1 23:35 Follow up: Response: No adverse reaction; Marked relief of symptoms vc1 Medication: 23:35 VIS not applicable for this client. vc1 Outcome: 22:52 Discharge ordered by . kb 23:35 Patient left the ED. vc1 07/23 00:37 Discharged to home ambulatory, vc1 Condition: stable Discharge instructions given to patient, Instructed on discharge instructions, follow up and referral plans. medication usage, Demonstrated understanding of instructions, follow-up care, medications, Prescriptions given X 2, Signatures: Dispatcher [employer] EDMS Bev Davis FNP-C FNP-Ckb Calcote, Vanessa, RN RN vc1 Catalina Hong gm2 COSMO MONCADA, RN RN dd2
--- NOTE | 2024-07-22 22:53 | EDPHYS ---
Physician Documentation [facility] Name: Won Vera Age: 54 yrs Sex: Male : 1970 Arrival Date: 07/22/2024 Time: 21:35 Bed DX1 Private MD: ED Physician Marciano Combs HPI: 07/22 22:50 This 54 yrs old Male presents to ER via Ambulatory with complaints of COPD Exacerbation.kb 22:50 Pt is a 54 year old male who presents for shortness of breath that has been ongoing for kb 2 weeks since running out of inhaler. denies fever, cough, congestion. . Historical: - Allergies: 22:02 No Known Allergies; dd2 - PMHx: 22:02 Anemia; Asthma; COPD; RLS; dd2 - PSHx: 22:02 None; dd2 - Immunization history:: Adult Immunizations up to date. - Infectious Disease History:: Denies. - Social history:: Smoking status: Patient/guardian denies using tobacco, the patient reports quitting approximately 1 years ago. ROS: 22:51 Constitutional: As per HPI kb Exam: 22:51 Constitutional: This is a well developed, well nourished patient who is awake, alert, kb and in no acute distress. Head/Face: Normocephalic, atraumatic. ENT: Moist Mucous membranes Cardiovascular: Regular rate Respiratory: Respirations even and unlabored. No increased work of breathing. Talking in full sentences Skin: Warm, dry with normal turgor. Normal color. MS/ Extremity: Pulses equal, no cyanosis. Neurovascular intact. Full, normal range of motion. Neuro: Awake and alert, GCS 15, oriented to person, place, time, and situation. Vital Signs: 22:01 BP 146 / 98; Pulse 70; Resp 18; Temp 98.1; Pulse Ox 99% on R/A; Weight 74.84 kg; Height dd2 5 ft. 11 in. ; 22:01 Body Mass Index 23.01 (74.84 kg, 180.34 cm) dd2 MDM: 21:52 Medical Screening Exam initiated kb 22:51 Differential diagnosis: copd exacerbation, pneumonia. Data reviewed: vital signs, kb nurses notes. I considered the following discharge prescriptions or medication management in the emergency department Antibiotics: At this time antibiotics are not recommended. Test considered but Not performed: Labs: covid and flu test considered but symptoms have been ongoing for 2 weeks, no fever, cough, congestion. Counseling: I had a detailed discussion with the patient and/or guardian regarding the historical points, exam findings, and any diagnostic results supporting the discharge/admit diagnosis, radiology results, the need for outpatient follow up, a family practitioner, to return to the emergency department if symptoms worsen or persist or if there are any questions or concerns that arise at home. 07/22 22:01 Order name: Chest Pa And Lat (2 Views) XRAY; Complete Time: 22:32 kb Administered Medications: 22:44 Drug: Albuterol Inhalation 2.5 mg Inhalation once Route: Inhalation; vc1 22:44 Drug: Ipratropium Inhalation Aerosol 0.5 mg Inhalation once Route: Inhalation; vc1 22:44 Drug: predniSONE PO 40 mg PO once Route: PO; vc1 23:35 Follow up: Response: No adverse reaction; Marked relief of symptoms vc1 Disposition: 07/23 21:44 Co-signature as Attending Physician, Marciano Combs MD I agree with the assessment sp4 and plan of care. I reviewed the patient's care provided by the Advanced Practice Provider and agree with the diagnosis and treatment plan. Disposition Summary: 07/22/24 22:52 Discharge Ordered Notes: Location: Home Condition: Stable kb Diagnosis - COPD/ Chronic obstructive pulmonary disease, unspecified kb Followup: kb - With: Emergency Department - When: As needed - Reason: Worsening of condition Followup: kb - With: Private Physician - When: 2 - 3 days - Reason: Recheck today's complaints, Continuance of care, Re-evaluation by your physician Discharge Instructions: - Discharge Summary Sheet kb - Chronic Obstructive Pulmonary Disease Exacerbation kb Forms: - Medication Reconciliation Form kb - Antibiotic Education kb - Prescription Opioid Use kb - Patient Portal Instructions kb - Leadership Thank You Letter kb Prescriptions: - albuterol sulfate 90 mcg/actuation Inhalation HFA Aerosol Inhaler - inhale 2 puff INHALATION route every 4-6 hours As needed; 1 unit; Refills: 0, kb Product Selection Permitted - Prednisone 20 mg Oral Tablet - take 1 tablet ORAL route once daily for 5 days; 5 tablet; Refills: 0, Product kb Selection Permitted Signatures: Dispatcher [employer]yo[employer]st Bev Romero FNP-C FNP-Farzad Nathana, RN RN vc1 Marciano Combs MD MD sp4 COSMO MONCADA RN RN dd2
[2024-07-22 23:41] VITALS: BP 146/98; TEMP 98.1; O2SAT 99
== END 2024-07-22 23:35 | disposition home or self-care (01) ==
LOC: ER 21:35
DX: J44.9 Chronic obstructive pulmonary disease, unspecified (principal)
CPT/HCPCS: 71046; J7512; J7613; J7644; 99284

== ENCOUNTER 2024-09-07 21:16 | Emergency (ER) | payer OTHER ==
--- OUTSIDE RECORDS SUMMARY | 2024-09-07 21:20 | XMS REPORT | Continuity of Care Document ---
Author Name Unknown Address [address] [facility] [address] [place] [address] [facility] Address [address] [place] [address] Care Team Providers Care Knitting Machine Tender Name Role Phone Seymour BRIDGETTE, Gayle Primary Care Physician CHICHO VENTURA Attending Clinician MELLY Martínez Attending Clinician Jessie barnett Payers Payer Name Policy Type Policy Number Effective Date Expirati on Date Source [facility] ISABELL BURGER COPAY FOCUS 9 [id number] 2024 00:00:00 Medications Ordered Medication Name Filled [...] End Date/Time Encounter Type Admission Type Attending [facility] Care Department Encounter ID Source 2024-04-17 14:00:00 2024-04-17 14:00:00 Outpatient CHICHO VENTURA REINA [id number] Re[facility] 2024-03-24 11:00:00 2024-03-24 11:00:00 Outpatient MELLY WHITING REINA [id number] Re[facility] 2023-11-08 10:32:23 2023-11-08 10:32:23 Outpatient SFA SFA [id number] Alan Gu 2023-11-08 00:00:00 2023-11-08 00:00:00 Outpatient Visit SFA [id number] Alan Gu 2023-10-24 11:05:41 2023-10-24 11:05:41 Outpatient SFA SFA [id number] Alan Gu 2023-10-17 09:12:12 2023-10-17 09:12:12 Outpatient SFA SFA [id number] Alan Gu 2023-10-17 00:00:00 2023-10-17 00:00:00 Outpatient Visit SFA [id number] Alan Gu 2023-09-19 09:38:15 2023-09-19 09:38:15 Outpatient SFA SFA [id number] Alan Gu 2023-09-19 00:00:00 2023-09-19 00:00:00 Outpatient Visit SFA [id number] Alan Gu Results Test Description Test Time Test Comments Results Result Co mments Source HEMOGLOBIN [id number] 00:00:00* Test Item Value Reference Range Interpretation Comme nts HEMOGLOBIN A1c (test code = 12789) 5.8 % Alan Leon AustinHEMOGLOBIN [id number] 00:00:00* Test Item Value Reference Range Interpretation Comme nts HEMOGLOBIN A1c (test code = 78682) 5.8 % Alan Leon RiccardoCBC W/AUTO DIFF WITH [id number] 11:43:32* Test Item Value Reference Range Interpretation [...] 0.00-0.10 ABS NUCLEATED RBCS (test code = 97511) 0.00 K/UL 0.00-0.11 LIPID [id number] 04:06:25* Test Item Value Reference Range Interpretation [...] SPECIMENS. FOR MOREINFORMATION, SEE CLIENT ANNOUNCEMENT AT [email or web address] RISK RATIO LDL/HDL (test code = 223) 1.55 RATIO <3.55 COMPREHENSIVE METABOLIC [id number] 04:06:25* Test Item Value Reference Range Interpretation Comme nts GLUCOSE (test code = 221) 92 MG/DL 70-99 BUN (test code = 2207) 21 MG/DL 6-20 H CREATININE (test code = 221) 1.16 MG/DL 0.80-1.40 eGFR (2020 CKD-EPI) (test co de = 84329) 76 ML/MIN/1.73 >60 CALC BUN/CREAT (test code [...] U/L 5-50 HIV 1/2 4TH GEN, RFLX [id number] 03:44:28* Test Item Value Reference Range Interpretation Comme nts HIV 1/2 4TH GEN, RFLX CONF ( test code = 3514) NON-REACTIVE NON-REACTIVE HEPATITIS PANEL, [id number] 03:44:28* Test Item Value Reference Range Interpretation [...] A. INTERPRETATION HEPATITIS B: (test code = 00076) (NOTE) Hepatitis B sero logy shows no evidence of past exposure to orcurrent infection with hepatitis B virus. No evidence of hepatitis Bimmunization is identified. INTERPRETATION HEPATITIS C: (test code = 27134) (NOTE) Hepatitis C sero logy shows no evidence of exposure to hepatitisC virus at this time. It can take up to 12 months after exposure tothe hepatitis C virus for antibodies to become detectable in the blood in certain patients. UNLESS OTHERWISE INDICATED, ALL TESTING PERFORMED AT [facility] [address] [place] [address] PATIENT PORTAL CONCIERGE: KATHY BOWERS M.D. CLIA NUMBER [id number] [facility] [place]. [id number] CBC W/AUTO [id number] 00:00:00* Test Item Value Reference Range Interpretation [...] ABS NUCLEATED RBCS (test cod e = 35900) 0.00 K/UL Alan GuLIPID [id number] 00:00:00* Test Item Value Reference Range Interpretation Comme nts CHOLESTEROL (test code = 2210) 158 MG/DL TRIGLYCERIDES (test code = 2232) 61 MG/DL HDL CHOLESTEROL (test code = 2220) 56 MG/DL CALC LDL CHOL (test code = 2237) 87 MG/DL RISK RATIO LDL/HDL (test cod e = 2238) 1.55 RATIO Alan Leon RiccardoCOMPREHENSIVE METABOLIC [id number] 00:00:00* Test Item Value Reference Range Interpretation Comme nts GLUCOSE (test code = 2217) 92 MG/DL BUN (test code = 2208) 21 MG/DL CREATININE (test code = 2214) 1.16 MG/DL eGFR (2020 CKD-EPI) (test co de = 57046) 76 ML/MIN/1.73 CALC BUN/CREAT (test code = [...] U/L Alan GuHIV 1/2 4TH GEN, RFLX [id number] 00:00:00* Test Item Value Reference Range Interpretation [...] (NOTE) INTERPRETATION HEPATITIS B: (test code = 87550) (NOTE) INTERPRETATION HEPATITIS C: (test code = 13485) (NOTE) Alan GuCBC W/AUTO [id number] 00:00:00* Test Item Value Reference Range Interpretation [...] ABS NUCLEATED RBCS (test cod e = 70675) 0.00 K/UL Alan GuLIPID [id number] 00:00:00* Test Item Value Reference Range Interpretation Comme nts CHOLESTEROL (test code = 2210) 158 MG/DL TRIGLYCERIDES (test code = 2232) 61 MG/DL HDL CHOLESTEROL (test code = 2220) 56 MG/DL CALC LDL CHOL (test code = 2237) 87 MG/DL RISK RATIO LDL/HDL (test cod e = 2238) 1.55 RATIO Alan GuCOMPREHENSIVE METABOLIC [id number] 00:00:00* Test Item Value Reference Range Interpretation Comme nts GLUCOSE (test code = 2217) 92 MG/DL BUN (test code = 2208) 21 MG/DL CREATININE (test code = 2214) 1.16 MG/DL eGFR (2020 CKD-EPI) (test co de = 49283) 76 ML/MIN/1.73 CALC BUN/CREAT (test code = [...] U/L Alan GuHIV 1/2 4TH GEN, RFLX [id number] 00:00:00* Test Item Value Reference Range Interpretation [...] (NOTE) INTERPRETATION HEPATITIS B: (test code = 67738) (NOTE) INTERPRETATION HEPATITIS C: (test code = 54013) (NOTE) Alan Carolyn Riccardo Notes Date/Time Note Provider Source Alan Barreto [facility]2024-05-23 00:00:00 Alan Barreto [facility]2024-04-25 00:00:00 Alan FArthur [facility]
[2024-09-07] MEDS ORDERED: ALBUTEROL 2.5 MG/3 ML NEB SOL ONE (22:10)
[2024-09-07] MEDS ORDERED: METHYLPREDNISOLONE 125 MG INJ ONE (22:11)
[2024-09-07] MEDS ORDERED: IPRATROPIUM BROM 0.5MG/2.5ML ONE (22:11)
--- NOTE | 2024-09-07 22:53 | RAD REPORT ---
EXAMINATION: ONE VIEW CHEST XR CLINICAL INDICATION: Male, 54 years old.,DYSPNEA TECHNIQUE: Frontal chest projection is submitted. Examination is limited by patient positioning and t echnique. COMPARISON: 07/22/2024 FINDINGS: The lungs are diffusely emphysematous but grossly clear. No pneumothorax or sizable effusion. The he art is normal in size. Mediastinal contours are unremarkable. IMPRESSION: No acute intrathoracic abnormalities.
[2024-09-07 23:02] LABS: Absolute Eosinophils 0.1 K/uL (0-0.5); Absolute Lymphocytes (CBC) 1.1 K/uL (0.7-4.9); Absolute Monocytes 0.5 K/uL (0.1-1.3); Absolute Neutrophil 4.8 K/uL (1.8-8.0); Basophils % 0.6 % (0-1.3); Hematocrit 36.7 % (39.6-49.0); Hemoglobin 12.2 g/dL (13.6-17.9); Lymphocytes % 17.5 % (15.3-44.8); MCH 28.4 pg (27.0-35.0); MCHC 33.4 g/dL (32.0-36.0); MCV 85.1 fL (80-100); MPV 7.9 fL (7.6-11.3); Neutrophils % 72.9 % (41.7-73.7); Nucleated Red Blood Cells % 0.2 % (0-0); Platelets 236 thou/uL (152-406); RBC Red Blood Cell Count 4.31 M/uL (4.33-5.43); Red Cell Distribution Width 15.1 % (12.1-15.2)
[2024-09-07 23:28] LABS: Magnesium 2.1 mg/dL (1.6-2.4); Troponin High Sensitivity 9.7 pg/mL (<58.9)
--- NOTE | 2024-09-07 23:37 | ER ---
Nurse's Notes [facility] Name: Won Vera Age: 54 yrs Sex: Male : 1970 Arrival Date: 09/07/2024 Time: 21:16 Bed 10 Private MD: Diagnosis: COPD/ Chronic obstructive pulmonary disease with (acute) exacerbation Presentation: 09/07 21:27 Chief complaint: Patient states: DIFFICULTY BREATHING X2 DAYS, OUT OF ALBUTEROL X1 dd2 WEEK. HX COPD, ASTHMA. Coronavirus screen: At this time, the client does not indicate any symptoms associated with coronavirus-19. Ebola Screen: No symptoms or risks identified at this time. Initial Sepsis Screen: Does the patient meet any 2 criteria? No. Patient's initial sepsis screen is negative. Does the patient have a suspected source of infection? No. Patient's initial sepsis screen is negative. Risk Assessment: Do you want to hurt yourself or someone else? Patient reports no desire to harm self or others. Onset of symptoms is unknown. 21:27 Method Of Arrival: Ambulatory dd2 21:27 Acuity: DELANEY 3 dd2 Triage Assessment: 21:31 General: Appears in no apparent distress. Behavior is calm, cooperative, appropriate dd2 for age. Pain: Denies pain. Respiratory: Reports shortness of breath at rest on exertion cough that is dry, persistent Airway is patent Respiratory effort is even, unlabored, Respiratory pattern is regular, symmetrical, Onset: The symptoms/episode began/occurred X 2 DAYS, the patient has mild shortness of breath. Historical: - Allergies: 21:31 No Known Allergies; dd2 - PMHx: 21:31 Anemia; Asthma; COPD; RLS; dd2 - PSHx: 21:31 None; dd2 - Immunization history:: Adult Immunizations up to date, Client reports receiving the 2nd dose of the Covid vaccine, Client reports receiving the 1st dose of the Covid vaccine, Flu vaccine is up to date. - Infectious Disease History:: Denies. - Social history:: Smoking status: Patient/guardian denies using tobacco, the patient reports quitting approximately 1 years ago. Screenin:21 [facility] ED Fall Risk Assessment (Adult) History of falling in the last 3 months, bm8 including since admission No falls in past 3 months (0 pts) Confusion or Disorientation No (0 pts) Intoxicated or Sedated No (0 pts) Impaired Gait No (0 pts) Mobility Assist Device Used No (0 pt) Altered Elimination No (0 pt) Score/Fall Risk Level 0 - 2 = Low Risk Oriented to surroundings, Maintained a safe environment, Educated pt \T\ family on fall prevention, incl call for assistance when getting out of bed, Assessed \T\ reinforced patient's understanding of fall precautions, Hourly rounding (assess needs \T\ fall precautionary measures) done, Used ambulatory aids as needed (educated on \T\ assisted with), Used gait belt as appropriate. Abuse screen: Denies threats or abuse. Nutritional screening: No deficits noted. Tuberculosis screening: No symptoms or risk factors identified. Assessment: 22:21 Reassessment: Patient appears in no apparent distress at this time. Patient and/or bm8 family updated on plan of care and expected duration. Pain level reassessed. Patient is alert, oriented x 3, equal unlabored respirations, skin warm/dry/pink. Patient states feeling better. Patient states symptoms have improved. Cardiovascular: Denies chest pain, shortness of breath, Heart tones S1 S2 Rhythm is sinus rhythm. Respiratory: Airway is patent Trachea midline Respiratory effort is even, unlabored, Respiratory pattern is regular, symmetrical, Breath sounds are clear bilaterally. 23:03 Reassessment: Patient appears in no apparent distress at this time. Patient and/or bm8 family updated on plan of care and expected duration. Pain level reassessed. Patient is alert, oriented x 3, equal unlabored respirations, skin warm/dry/pink. Patient denies pain at this time. Patient states feeling better. Patient states symptoms have improved. 23:36 Respiratory: Airway is patent Trachea midline Respiratory effort is even, unlabored, bm8 Respiratory pattern is regular, symmetrical, Breath sounds with wheezes bilaterally. Denies shortness of breath labored breathing, pain with respiration. Vital Signs: 21:27 BP 177 / 105; Pulse 75; Resp 19; Temp 99; Pulse Ox 99% on R/A; Weight 74.84 kg; Height dd2 5 ft. 11 in. ; 22:21 BP 128 / 88; Pulse 66; Resp 18; Temp 99; Pulse Ox 100% on Nebulizer Mask; Pain 0/10; bm8 23:36 BP 158 / 90; Pulse 63; Resp 18; Temp 99; Pulse Ox 99% ; Pain 0/10; bm8 21:27 Body Mass Index 23.01 (74.84 kg, 180.34 cm) dd2 22:21 Pain Scale: Adult bm8 23:36 Pain Scale: Adult bm8 [place] Coma Score: 22:21 Eye Response: spontaneous(4). Motor Response: obeys commands(6). Verbal Response: bm8 oriented(5). Total: 15. 23:36 Eye Response: spontaneous(4). Motor Response: obeys commands(6). Verbal Response: bm8 oriented(5). Total: 15. ED Course: 21:25 Patient arrived in ED. gm2 21:27 [facility]. sb4 21:27 Marciano Combs MD is Attending Physician. sb4 21:31 Triage completed. dd2 21:31 Arm band placed on right wrist. dd2 22:06 Tenzin Moran, RN is Primary Nurse. bm8 22:17 XRAY CXR (1 view) In Process Unspecified. EDMS 22:21 Patient has correct armband on for positive identification. Bed in low position. Call bm8 light in reach. Side rails up X 1. Client placed on continuous cardiac and pulse oximetry monitoring. NIBP monitoring applied. Pulse ox on. NIBP on. Door closed. Noise minimized. Pillow given. Verbal reassurance given. Head of bed elevated. 22:21 No provider procedures requiring assistance completed. Initial lab(s) drawn, by me, bm8 sent to lab. Inserted saline lock: 20 gauge in right antecubital area, using aseptic technique. Blood collected. Flushed with 10 mL NS. Oxygen administered via a nebulizer mask. Response to oxygen therapy: symptoms improved. 23:36 Provided Education on: post er care. bm8 23:36 IV discontinued, intact, bleeding controlled, No redness/swelling at site. Pressure bm8 dressing applied. Administered Medications: 22:21 Drug: DuoNeb Nebulize (3:1) (2.5 mg - 0.5 mg) 3 ml Nebulizer once Route: Nebulizer; bm8 23:37 Follow up: Response: No adverse reaction bm8 22:21 Drug: MethylPrednisoLONE IVP 125 mg IVP once Route: IVP; Site: left antecubital; bm8 23:37 Follow up: Response: No adverse reaction bm8 Medication: 22:21 VIS not applicable for this client. bm8 Outcome: 23:36 Discharge ordered by . sandra 23:36 Discharged to home ambulatory, bm8 23:36 Condition: stable 23:36 Discharge instructions given to patient, family, Instructed on discharge instructions, follow up and referral plans. Demonstrated understanding of instructions, follow-up care, medications, Prescriptions given X 2, 23:43 Patient left the ED. bm8 Signatures: Dispatcher [employer] EDHannah Delgadillo PAGerardC PA-C sb4 Catalina Hong gm2 Tenzin Moran, RN RN bm8 COSMO MONCADA RN RN dd2
--- NOTE | 2024-09-07 23:37 | EDPHYS ---
Physician Documentation [facility] Name: Won Vera Age: 54 yrs Sex: Male : 1970 Arrival Date: 09/07/2024 Time: 21:16 Bed 10 Private MD: ED Physician Marciano Combs HPI: 09/07 21:47 This 54 yrs old Male presents to ER via Ambulatory with complaints of Breathing sb4 Difficulty. 21:47 shortness of breath x 2 days. has been out of albuterol x 1 week. h/o COPD, does not sb4 see a regular provider. no other complaints at this time. Historical: - Allergies: 21:31 No Known Allergies; dd2 - PMHx: 21:31 Anemia; Asthma; COPD; RLS; dd2 - PSHx: 21:31 None; dd2 - Immunization history:: Adult Immunizations up to date, Client reports receiving the 2nd dose of the Covid vaccine, Client reports receiving the 1st dose of the Covid vaccine, Flu vaccine is up to date. - Infectious Disease History:: Denies. - Social history:: Smoking status: Patient/guardian denies using tobacco, the patient reports quitting approximately 1 years ago. ROS: 21:47 Constitutional: Negative for fever, chills, and weight loss, sb4 21:47 Respiratory: Positive for shortness of breath, wheezing, 21:47 All other systems are negative, Exam: 21:47 Constitutional: This is a well developed, well nourished patient who is awake, alert, sb4 and in no acute distress. Head/Face: Normocephalic, atraumatic. Eyes: Extra-ocular motions intact. Periorbital areas with no swelling, redness, or edema. ENT: Mucous membranes moist. Cardiovascular: Regular rate and rhythm with a normal S1 and S2. Respiratory: No increased work of breathing, no retractions or nasal flaring. Abdomen/GI: Soft, non-tender, no distension. Skin: Warm, dry with normal turgor. Normal color with no rashes, no lesions, and no evidence of cellulitis. 21:47 Respiratory: Breath sounds: wheezing: expiratory that is mild, is heard diffusely, Vital Signs: 21:27 BP 177 / 105; Pulse 75; Resp 19; Temp 99; Pulse Ox 99% on R/A; Weight 74.84 kg; Height dd2 5 ft. 11 in. ; 22:21 BP 128 / 88; Pulse 66; Resp 18; Temp 99; Pulse Ox 100% on Nebulizer Mask; Pain 0/10; bm8 23:36 BP 158 / 90; Pulse 63; Resp 18; Temp 99; Pulse Ox 99% ; Pain 0/10; bm8 21:27 Body Mass Index 23.01 (74.84 kg, 180.34 cm) dd2 22:21 Pain Scale: Adult bm8 23:36 Pain Scale: Adult bm8 [place] Coma Score: 22:21 Eye Response: spontaneous(4). Motor Response: obeys commands(6). Verbal Response: bm8 oriented(5). Total: 15. 23:36 Eye Response: spontaneous(4). Motor Response: obeys commands(6). Verbal Response: bm8 oriented(5). Total: 15. MDM: 21:27 Medical Screening Exam initiated sb4 23:36 Data reviewed: vital signs, nurses notes, lab test result(s), radiologic studies, and sb4 as a result, I will discharge patient. Counseling: I had a detailed discussion with the patient and/or guardian regarding the historical points, exam findings, and any diagnostic results supporting the discharge/admit diagnosis, lab results, radiology results, the need for outpatient follow up, for definitive care, to return to the emergency department if symptoms worsen or persist or if there are any questions or concerns that arise at home. 09/07 21:46 Order name: BMP; Complete Time: 23:29 sb4 09/07 21:46 Order name: CBC with Diff; Complete Time: 23:15 sb4 09/07 21:46 Order name: Magnesium; Complete Time: 23:29 sb4 09/07 21:46 Order name: NT PRO-BNP; Complete Time: 23:29 sb4 09/07 21:46 Order name: Troponin HS; Complete Time: 23:29 sb4 09/07 21:46 Order name: XRAY CXR (1 view); Complete Time: 22:54 sb4 09/07 21:46 Order name: IV Saline Lock; Complete Time: 22:21 sb4 09/07 21:46 Order name: Labs collected and sent; Complete Time: 22:21 sb4 09/07 21:46 Order name: O2 Per Protocol; Complete Time: 22:21 sb4 09/07 21:46 Order name: O2 Sat Monitoring; Complete Time: 22:21 sb4 Administered Medications: 22:21 Drug: DuoNeb Nebulize (3:1) (2.5 mg - 0.5 mg) 3 ml Nebulizer once Route: Nebulizer; bm8 23:37 Follow up: Response: No adverse reaction bm8 22:21 Drug: MethylPrednisoLONE IVP 125 mg IVP once Route: IVP; Site: left antecubital; bm8 23:37 Follow up: Response: No adverse reaction bm8 Disposition: 09/08 03:47 Co-signature as Attending Physician, Marciano Combs MD I agree with the assessment sp4 and plan of care. I reviewed the patient's care provided by the Advanced Practice Provider and agree with the diagnosis and treatment plan. Disposition Summary: 09/07/24 23:36 Discharge Ordered Notes: Location: Home sb4 Problem: an acute exacerbation sb4 Symptoms: have improved sb4 Condition: Stable sb4 Diagnosis - COPD/ Chronic obstructive pulmonary disease with (acute) exacerbation sb4 Followup: sb4 - With: Private Physician - When: 1 week - Reason: Recheck today's complaints, Continuance of care, Re-evaluation by your physician Discharge Instructions: - Discharge Summary Sheet sb4 - Chronic Obstructive Pulmonary Disease Exacerbation sb4 Forms: - Patient Portal Instructions sb4 - Leadership Thank You Letter sb4 Prescriptions: - albuterol sulfate 90 mcg/actuation Inhalation HFA Aerosol Inhaler - inhale 1 puff INHALATION route every 4 hours as needed for wheezing or sb4 shortness of breath; 1 Applicator; Refills: 0, Product Selection Permitted - Prednisone 20 mg Oral Tablet - take 1 tablet ORAL route every 12 hours for 5 days; 10 tablet; Refills: 0, sb4 Product Selection Permitted Signatures: Dispatcher [employer] Hannah Fishman PA-C PA-C sb4 Marciano Combs MD MD sp4 Tenzin Moran RN RN bm8 COSMO MONCADA RN RN dd2
[2024-09-08 00:08] VITALS: TEMP 99
[2024-09-08 00:11] VITALS: BP 158/90; O2SAT 99
== END 2024-09-07 23:43 | disposition home or self-care (01) ==
LOC: ER 21:16
DX: J44.1 Chronic obstructive pulmonary disease with (acute) exacerbation (principal)
CPT/HCPCS: 85025; 80048; 36415; 83735; 84484; 83880; 71045; 96374; 99285; J7613; J7644; J2919